=== PATIENT | female | born 1930 | race Caucasian/White ===

== ENCOUNTER 2016-08-08 09:41 | Inpatient (IN) | payer OTHER ==
[~2016-08-08] VITALS: Ht 157.5 cm; Wt 89.8 kg
[~2016-08-08 09:41] MED LIST: ASCO10003 PO; ASPI-346 PO; ATOR10TA82 PO; CALC-354 PO; CALC1CAP36 PO; CITA20TA4 PO; CYAN500T13 PO; EXM25C PO; FENT12DI6 TD; FENT50DI19 TD; FEXO1TAB46 PO; FURO80TA63 PO; ISOS30TA3 PO; LEVO112T4 PO; LPR50X PO; MAGN250T3 PO; MONT1TAB3 PO; NXM/40 PO; OXYC-57 PO; VALS40TA2 PO
[2016-08-08] MEDS ORDERED: ONDANSETRON INJ 2 MG/ML 2 ML VIAL IV STA (09:58)
--- NOTE | 2016-08-08 10:16 | EMERGENCY ROOM VISIT NOTE ---
History Report prepared by Hiral: Jeffrey Joy Under the Supervision of: Garry JuanO. First contact with patient: 09:49 Chief Complaint: PAIN (GENERALIZED) Stated Complaint: LEFT SIDE PAIN History of Present Illness The patient is a 85 year old female who presents to the Emergency Room with complaints of severe and persistent left lower extremity pain starting 3 days ago. She reports pain radiation to the lower back and left knee. She also complains of left lower quadrant abdominal pain. She has worsening pain with movement. She also started having bilateral lower extremity swelling last night. She has been having a decreased urinary output for the past few days. She has a history of bilateral knee replacement. As per daughter, the patient did not have any recent falls. The patient denies any fevers, chills, nausea, vomiting, or any other complaints. Source of History: patient, family Onset: 3 days ago Position: other (left lower extremity) Symptom Intensity: severe Timing: other (persistent) Modifying Factors (Worsening): movement Associated Symptoms: + abdominal pain, + back pain, No chills, No fevers, No nausea, No vomiting Review of Systems See HPI for pertinent positives & negatives. A total of 10 systems reviewed and were otherwise negative. Past Medical & Surgical Medical Problems: (1) Acute kidney injury (2) Dehydration (3) Diarrhea (4) Hiatal hernia (5) Hypothyroid (6) Left knee DJD (7) Ruptured patellar tendon (8) Spinal stenosis (9) Vomiting Surgical Problems: (1) History of cholecystectomy Family History Cancer Heart disease Hypertension Social History Smoking Status: Never Smoker Alcohol Use: none Drug Use: none Marital Status: Housing Status: lives with family Occupation Status: retired Current/Historical Medications Scheduled Albuterol Hfa (Ventolin Hfa), 2-4 PUFFS INH Q6H Ascorbic Acid (Vitamin C), 1,000 MG PO DAILY Aspirin (Mallory Low Dose), 81 MG PO DAILY Atorvastatin (Lipitor), 10 MG PO DAILY Calcitriol (Calcitriol), 0.25 MCG PO DAILY Calcium Carbonate-Cholecalcife (Caltrate 600+D), 1 TAB PO DAILY Citalopram Hydrobromide (Citalopram Hydrobromide), 30 MG PO DAILY Esomeprazole Magnesium (Nexium), 40 MG PO DAILY Exemestane (Aromasin), 25 MG PO DAILY Fentanyl (Duragesic), 50 MCG TD CQ72HR Fentanyl (Fentanyl), 12 MCG TD CQ72HR Ferrous Gluconate (Iron), 65 MG PO DAILY Folic Acid (Folvite), 400 MCG PO DAILY Furosemide (Lasix), 80 MG PO DAILY Isosorbide Mononitrate Ext Rel (Imdur Ext Rel), 30 MG PO QAM Levothyroxine Sodium (Synthroid), 100 MCG PO DAILY Linaclotide (Linzess), 145 MCG PO QAM Magnesium Oxide (Mag-Ox), 800 MG PO DAILY Metoprolol Tartrate (Metoprolol Tartrate), 50 MG PO BID Montelukast Sodium (Singulair), 10 MG PO DAILY Valsartan (Diovan), 40 MG PO DAILY Scheduled PRN Oxycodone/Acetaminophen 5MG/325MG (Percocet 5MG/325MG), 1 TABLET PO Q6H PRN for Pain Allergies Coded Allergies: Lisinopril (Verified Adverse Reaction, Mild, cough, 01/13/15) Physical Exam Vital Signs Date Time Temp Pulse Resp B/P Pulse Ox O2 Delivery O2 Flow Rate FiO2 08/08/16 11:37 65 103/65 94 Room Air 08/08/16 10:51 60 24 186/115 94 Room Air 08/08/16 09:45 36.7 60 20 194/78 96 Room Air Physical Exam GENERAL: Patient is awake, alert, very anxious and uncomfortable appearing. EYES: The conjunctivae are clear. The pupils are round and reactive. EARS, NOSE, MOUTH AND THROAT: The nose is without any evidence of any deformity. Mucous membranes are moist tongue is midline NECK: The neck is nontender and supple. RESPIRATORY: Normal respiratory effort is noted there is no evidence of wheezing rhonchi or rales CARDIOVASCULAR: Regular rate and rhythm noted there no murmurs rubs or gallops normal S1 normal S2 GASTROINTESTINAL: The abdomen is mildly distended but soft. Bowel sounds are present in all quadrants. Left lower quadrant abdominal tenderness to palpation. No definite guarding or rigidity noted. BACK: Low lumbar tenderness to palpation, range of motion appears limited secondary to pain. No midline tenderness or or step-off noted no signs of muscle spasm noted MUSCULOSKELETAL/EXTREMITIES: Full range of motion is noted in the shoulders. Pain with range of motion of the left hip as well as the left knee, no deformity or shortening noted. SKIN: There is no obvious evidence of any rash. There are no petechiae, pallor or cyanosis noted. Bilateral lower extremity edema with venous stasis changes noted. NEUROLOGIC: Patient is awake alert and oriented x3 strength is symmetric but diminished. Severe antalgic gait noted. Medical Decision & Procedures ER Provider Diagnostic Interpretation: CT results as stated below per my review and radiologist interpretation. CT SCAN OF THE ABDOMEN AND PELVIS WITHOUT IV CONTRAST CLINICAL HISTORY: Generalized and left-sided abdominal pain. COMPARISON STUDY: Abdominal radiographs dated 01/13/2015. TECHNIQUE: CT scan of the abdomen and pelvis is performed from the lung bases to the proximal femora. Images are reviewed in the axial, sagittal, and coronal planes. IV contrast was not administered for this examination as per the referring clinician. Note that the examination was performed and significant suboptimal fashion without oral and IV contrast. The examination is also degraded by streak artifact from the patient's arms which could not be [place] elevated above the abdomen. Automated dose control exposure was utilized. CT DOSE: 965.03 mGy.cm FINDINGS: Lung bases: The heart is mildly enlarged and without pericardial effusion. There are coronary artery calcifications. The lung bases are clear. There is a small to moderate hiatal hernia. There is a 2.4 cm irregular lesion identified within the posterior right breast on image #12. Liver: Evaluation of the liver is degraded by streak artifact. The unenhanced liver appears normal in size and contour. The liver demonstrates heterogeneous attenuation. There is mild central intrahepatic biliary ductal dilatation. Gallbladder: Surgically absent noting clips in the gallbladder fossa. Spleen: Normal in size and attenuation. Pancreas: There is marked fatty atrophy of the pancreas with no acute abnormality identified. Adrenal glands: Unremarkable. Kidneys: The unenhanced kidneys are atrophic and without hydronephrosis. There is a 5 mm nonobstructing calculus in the left lower pole. No right renal calculi are seen. A 1.9 cm low-attenuation lesion in the interpolar left kidney seen on image #147 likely represent a cyst but cannot be definitively characterized due to significant streak artifact. A retroaortic left renal vein is incidentally noted. Abdominal vasculature: The abdominal aorta is normal in course and caliber noting advanced atherosclerotic calcification. Bowel: The small bowel and colon are normal in course and caliber. There are scattered colonic diverticula without CT evidence of acute diverticulitis. Moderate constipation is observed. The appendix is not clearly identified. Peritoneum: There is no intraperitoneal free air or abdominal ascites. There is a small fat-containing umbilical hernia as well as diastases of the rectus musculature. Lymphadenopathy: None. Pelvic viscera: The bladder is decompressed and grossly unremarkable. The uterus is normal as visualized. No adnexal lesion is seen. There is evidence of pelvic floor prolapse. Bilateral fat-containing inguinal hernias are identified. Skeletal structures: The skeletal structures are osteopenic. There is moderate to advanced lumbosacral spondylosis with changes from L4-S1 spinal fusion. No lytic or blastic lesions are seen. Advanced arthritic change is seen in the hips. IMPRESSION: 1. Suboptimal examination without oral and IV contrast. 2. There is a 2.4 cm irregular lesion identified within the posterior right breast. Although not well evaluated by CT this is highly concerning for neoplasm. Follow-up at the breast center is recommended for mammography and ultrasound. 3. There are no acute infectious or inflammatory findings in the abdomen or pelvis. 4. Moderate constipation. 5. Cardiomegaly and hiatal hernia. 6. Nonobstructing left renal calculus. 7. Additional findings as above. Electronically signed by: Ray Newell M.D. 08/08/2016 11:28 AM Dictated Date/Time: 08/08/2016 11:18 AM X-ray results as stated below per interpretation by me and the radiologist. CHEST ONE VIEW PORTABLE HISTORY: Generalized abdominal pain. COMPARISON: Chest 01/13/2015. FINDINGS: The heart remains mildly enlarged. Mild diffuse interstitial thickening which is likely chronic. Stable mild elevation of the right hemidiaphragm. No pleural effusions. No pneumothorax. No focal lung consolidations to suggest pneumonia. IMPRESSION: No significant change compared to the prior study. No acute process. Electronically signed by: Miguel Ziegler M.D. 08/08/2016 10:58 AM Dictated Date/Time: 08/08/2016 10:57 AM LEFT HIP 2 VIEWS CLINICAL HISTORY: Left hip pain. FINDINGS: AP and frog-leg views of left hip are correlated with pelvic CT performed the same day 08/08/2016. The skeletal structures are osteopenic. No fracture is seen. Mild arthritic change is identified in the left hip. Advanced arthritic change is identified in the partially imaged right hip. Lumbosacral spondylosis and fusion hardware is partially imaged. Mild sclerotic change is also seen in the sacroiliac joints. The overlying soft tissues are within normal limits. There is a nonobstructed abdominal bowel gas pattern. IMPRESSION: 1. No acute bony abnormality is identified in the left hip. 2. Osteopenia and degenerative change as above. Electronically signed by: Ray Newell M.D. 08/08/2016 11:31 AM Dictated Date/Time: 08/08/2016 11:29 AM LEFT KNEE 2 VIEWS HISTORY: Left knee pain COMPARISON: Left knee 09/25/2013. FINDINGS: There is a left total knee arthroplasty. No acute fractures identified. Abnormal superior displacement of the patella. This was also seen on the prior study but appears to have progressed. Soft tissue edema within the knee. Old, healed proximal fibular fracture. No radiopaque foreign bodies. IMPRESSION: 1. No acute fractures within the left knee. 2. Old, healed proximal fibular fracture. 3. Left total knee arthroplasty. Superior displacement of the patella consistent with patellar ligament tear. This likely represents a chronic injury as this has slightly progressed compared to the prior study. Electronically signed by: Miguel Ziegler M.D. 08/08/2016 11:31 AM Dictated Date/Time: 08/08/2016 11:26 AM Laboratory Results 08/08/16 10:35 Red Blood Count 3.58, Mean Corpuscular Volume 95.8, Mean Corpuscular Hemoglobin 31.3, Mean Corpuscular Hemoglobin Concent 32.7, Mean Platelet Volume 9.8, Neutrophils (%) (Auto) 55.7, Lymphocytes (%) (Auto) 23.3, Monocytes (%) (Auto) 14.1, Eosinophils (%) (Auto) 6.1, Basophils (%) (Auto) 0.6, Neutrophils # (Auto ) 4.84, Lymphocytes # (Auto) 2.02, Monocytes # (Auto) 1.22, Eosinophils # (Auto ) 0.53, Basophils # (Auto) 0.05 08/08/16 10:35 Test 08/08/16 10:35 08/08/16 10:50 White Blood Count 8.68 K/uL (4.8-10.8) Red Blood Count 3.58 M/uL (4.2-5.4) Hemoglobin 11.2 g/dL (12.0-16.0) Hematocrit 34.3 % (37-47) Mean Corpuscular Volume 95.8 fL (80-100) Mean Corpuscular Hemoglobin 31.3 pg (25-34) Mean Corpuscular Hemoglobin Concent 32.7 g/dl (32-36) Platelet Count 209 K/uL (130-400) Mean Platelet Volume 9.8 fL (7.4-10.4) Neutrophils (%) (Auto) 55.7 % Lymphocytes (%) (Auto) 23.3 % Monocytes (%) (Auto) 14.1 % Eosinophils (%) (Auto) 6.1 % Basophils (%) (Auto) 0.6 % Neutrophils # (Auto) 4.84 K/uL (1.4-6.5) Lymphocytes # (Auto) 2.02 K/uL (1.2-3.4) Monocytes # (Auto) 1.22 K/uL (0.11-0.59) Eosinophils # (Auto) 0.53 K/uL (0-0.5) Basophils # (Auto) 0.05 K/uL (0-0.2) RDW Standard Deviation 46.2 fL (36.4-46.3) RDW Coefficient of Variation 13.1 % (11.5-14.5) Immature Granulocyte % (Auto) 0.2 % Immature Granulocyte # (Auto) 0.02 K/uL (0.00-0.02) Prothrombin Time 10.8 SECONDS (9.0-12.0) Prothromb Time International Ratio 1.0 (0.9-1.1) Activated Partial Thromboplast Time 26.5 SECONDS (21.0-31.0) Partial Thromboplastin Ratio 1.0 Anion Gap 7.0 mmol/L (3-11) Estimated GFR () 14.1 Estimated GFR (Non- 12.2 BUN/Creatinine Ratio 16.0 (10-20) Calcium Level 10.3 mg/dl (8.5-10.1) Total Bilirubin 0.6 mg/dl (0.2-1) Direct Bilirubin 0.2 mg/dl (0-0.2) Aspartate Amino Transf (AST/SGOT) 30 U/L (15-37) Alanine Aminotransferase (ALT/SGPT) 26 U/L (12-78) Alkaline Phosphatase 80 U/L (45-117) Total Creatine Kinase 174 U/L (26-192) Creatine Kinase MB 3.9 ng/ml (0.5-3.6) Creatine Kinase MB Ratio 2.2 (0-3.0) Troponin I < 0.015 ng/ml (0-0.045) Pro-B-Type Natriuretic Peptide 4670 pg/ml (0-1800) Total Protein 7.8 gm/dl (6.4-8.2) Albumin 4.4 gm/dl (3.4-5.0) Lipase 61 U/L (73-393) Urine Color YELLOW Urine Appearance CLEAR (CLEAR) Urine pH 6.5 (4.5-7.5) Urine Specific Bowie 1.013 (1.000-1.030) Urine Protein NEG (NEG) Urine Glucose (UA) NEG (NEG) Urine Ketones NEG (NEG) Urine Occult Blood NEG (NEG) Urine Nitrite NEG (NEG) Urine Bilirubin NEG (NEG) Urine Urobilinogen NEG (NEG) Urine Leukocyte Esterase NEG (NEG) Laboratory results per my review. Medications Administered Medications (Trade) Dose Ordered Sig/Lauren Route Start Time Stop Time Status Last Admin Dose Admin Morphine Sulfate (MoRPHine SULFATE INJ) 4 mg Q15M PRN IV 08/08/16 10:00 08/08/16 15:32 DC 08/08/16 11:53 4 MG Ondansetron HCl (Zofran Inj) 4 mg NOW STAT IV 08/08/16 09:58 08/08/16 10:00 DC 08/08/16 10:33 4 MG ECG Indication: abdominal pain Rate (beats per minute): 58 Rhythm: sinus bradycardia Findings: 1st degree AV block, no ectopy, other (No acute ST segment abnormalities) Comparison ECG Date: January 13, 2015 Change: no significant change ED Course 0949: The patient was evaluated in room A09B. A complete history and physical examination were performed. 0958: Zofran Inj 4 mg IV 1000: Morphine Sulfate 4 mg IV 1153: I reevaluated the patient who continues to complain of her pain. quality assurance test program manager will evaluate the situation and determine whether she should be sent for rehab or kept for pain management. 1246: Upon reevaluation, the patient is resting comfortably. I discussed results and treatment plan with the patient and her family. They verbalize agreement and understanding. I spoke with [facility] The patient will be evaluated for further management and care. Medical Decision Prior records/ancillary studies reviewed. Triage Nursing notes reviewed. Additional history obtained from daughter. Differential diagnosis: Etiologies such as renal colic, appendicitis, diverticulitis, mesenteric ischemia, aortic pathology, infections, inflammatory bowel disease, PUD, biliary pathology, UTI, as well as others were entertained. The patient is an 85-year-old female who presented to the emergency department for an evaluation of low back pain left flank pain and left groin pain. She also had pain into her left knee. The patient had reproducible pain with range of motion of her left leg. This appears musculoskeletal in nature although it could be referred pain. The patient has a history of spinal stenosis. At this time I feel her condition may be secondary to referred pain from spinal stenosis although she does have significant arthritis over the left hip and knee. The patient was treated with IV pain medication and IV antiemetics. On subsequent reevaluation she was not significantly improved. I discussed the patient's condition with her. She was still having severe difficulty ambulate. I [facility] They've agreed to evaluate the patient in the emergency department for further management and disposition. Consults Time Called: 1240 Consulting Physician: Ami Pantoja PA-C [facility] Returned Call: 1246 I spoke with Ami Pantoja PA-C of the [facility] Service. Impression Primary Impression: Spinal stenosis Additional Impressions: Intractable pain Left hip pain Arthritis of left hip Scribe Attestation The scribe's documentation has been prepared under my direction and personally reviewed by me in its entirety. I confirm that the note above accurately reflects all work, treatment, procedures, and medical decision making performed by me. Departure Information Dispostion Being Evaluated By Hospitalist Referrals No Doctor, Assigned (PCP) Patient Instructions My [facility] Problem Qualifiers Primary Impression: Spinal stenosis Spinal region: unspecified Qualified Codes: M48.00 - Spinal stenosis, site unspecified
[2016-08-08] MEDS ORDERED: DRGTP12 TD (10:22)
[2016-08-08] MEDS ORDERED: FERR27TA5 PO (10:22)
[2016-08-08] MEDS ORDERED: FOLI400T41 PO (10:22)
[2016-08-08] MEDS ORDERED: LEVO100T PO (10:22)
[2016-08-08] MEDS ORDERED: LINA1CAP PO (10:22)
[2016-08-08] MEDS ORDERED: DVN80 PO (10:22)
[2016-08-08] MEDS ORDERED: VNTHFA/IN INH (10:22)
[2016-08-08] MEDS ORDERED: FNTTP50 TD (10:22)
[2016-08-08] MEDS ORDERED: MAGN400T6 PO (10:22)
[2016-08-08] MEDS: MoRPHine SULFATE 4 MG/ML 1 ML CARP\\VIAL IV PRN ×2 (10:33→11:53)
[2016-08-08 10:46] LABS: BASO % 0.6 %; BASO ABS # 0.05 K/uL (0-0.2); COMPLETE YES; EOS % 6.1 %; HEMATOCRIT 34.3 % (37-47); IG% 0.2 %; LYMPH % 23.3 %; LYMPH ABS # 2.02 K/uL (1.2-3.4); MEAN CELL VOLUME 95.8 fL (80-100); MEAN CORPUSCULAR HEMOGLOBIN 31.3 pg (25-34); MEAN CORPUSCULAR HGB CONC 32.7 g/dl (32-36); MEAN PLATELET VOLUME 9.8 fL (7.4-10.4); MONO % 14.1 %; NEUT % 55.7 %; PLATELET COUNT 209 K/uL (130-400); RED BLOOD COUNT 3.58 M/uL (4.2-5.4); WHITE BLOOD COUNT 8.68 K/uL (4.8-10.8)
[2016-08-08 10:55] LABS: PROTHROMBIN TIME (PATIENT) 10.8 SECONDS (9.0-12.0)
--- NOTE | 2016-08-08 11:00 | DIAGNOSTIC IMAGING REPORT ---
CHEST ONE VIEW PORTABLE HISTORY: Generalized abdominal pain. COMPARISON: Chest 01/13/2015. FINDINGS: The heart remains mildly enlarged. Mild diffuse interstitial thickening which is likely chronic. Stable mild elevation of the right hemidiaphragm. No pleural effusions. No pneumothorax. No focal lung consolidations to suggest pneumonia. IMPRESSION: No significant change compared to the prior study. No acute process. Electronically signed by: Miguel Ziegler M.D. 08/08/2016 10:58 AM Dictated Date/Time: 08/08/2016 10:57 AM
[2016-08-08 11:02] LABS: URINE APPEARANCE CLEAR (CLEAR); URINE BILIRUBIN NEG (NEG); URINE COLOR YELLOW; URINE NITRITE NEG (NEG); URINE PH 6.5 (4.5-7.5); URINE SPECIFIC GRAVITY 1.013 (1.000-1.030); UROBILINOGEN NEG (NEG)
[2016-08-08 11:04] LABS: MANUAL MICROSCOPIC REQUIRED? NO; REVIEW REQ? NO
[2016-08-08 11:05] LABS: ALT/SGPT 26 U/L (12-78); BLOOD UREA NITROGEN 53 mg/dl (7-18); CARBON DIOXIDE 31 mmol/L (21-32); CHLORIDE 99 mmol/L (98-107); GLUCOSE 90 mg/dl (70-99); POTASSIUM 4.8 mmol/L (3.5-5.1); SODIUM 137 mmol/L (136-145)
[2016-08-08 11:06] LABS: CALCIUM 10.3 mg/dl (8.5-10.1)
[2016-08-08 11:11] LABS: ALKALINE PHOSPHATASE 80 U/L (45-117); AST/SGOT 30 U/L (15-37); CKMB/CK RATIO 2.2 (0-3.0)
--- NOTE | 2016-08-08 11:30 | DIAGNOSTIC IMAGING REPORT ---
CT SCAN OF THE ABDOMEN AND PELVIS WITHOUT IV CONTRAST CLINICAL HISTORY: Generalized and left-sided abdominal pain. COMPARISON STUDY: Abdominal radiographs dated 01/13/2015. TECHNIQUE: CT scan of the abdomen and pelvis is performed from the lung bases to the proximal femora. Images are reviewed in the axial, sagittal, and coronal planes. IV contrast was not administered for this examination as per the referring clinician. Note that the examination was performed and significant suboptimal fashion without oral and IV contrast. The examination is also degraded by streak artifact from the patient's arms which could not be [place] elevated above the abdomen. Automated dose control exposure was utilized. CT DOSE: 965.03 mGy.cm FINDINGS: Lung bases: The heart is mildly enlarged and without pericardial effusion. There are coronary artery calcifications. The lung bases are clear. There is a small to moderate hiatal hernia. There is a 2.4 cm irregular lesion identified within the posterior right breast on image #12. Liver: Evaluation of the liver is degraded by streak artifact. The unenhanced liver appears normal in size and contour. The liver demonstrates heterogeneous attenuation. There is mild central intrahepatic biliary ductal dilatation. Gallbladder: Surgically absent noting clips in the gallbladder fossa. Spleen: Normal in size and attenuation. Pancreas: There is marked fatty atrophy of the pancreas with no acute abnormality identified. Adrenal glands: Unremarkable. Kidneys: The unenhanced kidneys are atrophic and without hydronephrosis. There is a 5 mm nonobstructing calculus in the left lower pole. No right renal calculi are seen. A 1.9 cm low-attenuation lesion in the interpolar left kidney seen on image #147 likely represent a cyst but cannot be definitively characterized due to significant streak artifact. A retroaortic left renal vein is incidentally noted. Abdominal vasculature: The abdominal aorta is normal in course and caliber noting advanced atherosclerotic calcification. Bowel: The small bowel and colon are normal in course and caliber. There are scattered colonic diverticula without CT evidence of acute diverticulitis. Moderate constipation is observed. The appendix is not clearly identified. Peritoneum: There is no intraperitoneal free air or abdominal ascites. There is a small fat-containing umbilical hernia as well as diastases of the rectus musculature. Lymphadenopathy: None. Pelvic viscera: The bladder is decompressed and grossly unremarkable. The uterus is normal as visualized. No adnexal lesion is seen. There is evidence of pelvic floor prolapse. Bilateral fat-containing inguinal hernias are identified. Skeletal structures: The skeletal structures are osteopenic. There is moderate to advanced lumbosacral spondylosis with changes from L4-S1 spinal fusion. No lytic or blastic lesions are seen. Advanced arthritic change is seen in the hips. IMPRESSION: 1. Suboptimal examination without oral and IV contrast. 2. There is a 2.4 cm irregular lesion identified within the posterior right breast. Although not well evaluated by CT this is highly concerning for neoplasm. Follow-up at the breast center is recommended for mammography and ultrasound. 3. There are no acute infectious or inflammatory findings in the abdomen or pelvis. 4. Moderate constipation. 5. Cardiomegaly and hiatal hernia. 6. Nonobstructing left renal calculus. 7. Additional findings as above. Electronically signed by: Ray Newell M.D. 08/08/2016 11:28 AM Dictated Date/Time: 08/08/2016 11:18 AM
--- NOTE | 2016-08-08 11:33 | DIAGNOSTIC IMAGING REPORT ---
LEFT HIP 2 VIEWS CLINICAL HISTORY: Left hip pain. FINDINGS: AP and frog-leg views of left hip are correlated with pelvic CT performed the same day 08/08/2016. The skeletal structures are osteopenic. No fracture is seen. Mild arthritic change is identified in the left hip. Advanced arthritic change is identified in the partially imaged right hip. Lumbosacral spondylosis and fusion hardware is partially imaged. Mild sclerotic change is also seen in the sacroiliac joints. The overlying soft tissues are within normal limits. There is a nonobstructed abdominal bowel gas pattern. IMPRESSION: 1. No acute bony abnormality is identified in the left hip. 2. Osteopenia and degenerative change as above. Electronically signed by: Ray Newell M.D. 08/08/2016 11:31 AM Dictated Date/Time: 08/08/2016 11:29 AM
--- NOTE | 2016-08-08 11:33 | DIAGNOSTIC IMAGING REPORT ---
LEFT KNEE 2 VIEWS HISTORY: Left knee pain COMPARISON: Left knee 09/25/2013. FINDINGS: There is a left total knee arthroplasty. No acute fractures identified. Abnormal superior displacement of the patella. This was also seen on the prior study but appears to have progressed. Soft tissue edema within the knee. Old, healed proximal fibular fracture. No radiopaque foreign bodies. IMPRESSION: 1. No acute fractures within the left knee. 2. Old, healed proximal fibular fracture. 3. Left total knee arthroplasty. Superior displacement of the patella consistent with patellar ligament tear. This likely represents a chronic injury as this has slightly progressed compared to the prior study. Electronically signed by: Miguel Ziegler M.D. 08/08/2016 11:31 AM Dictated Date/Time: 08/08/2016 11:26 AM
[2016-08-08] MEDS ORDERED: ALBUTEROL HFA 8 GM INHALER INH PRN (13:00)
[2016-08-08] MEDS ORDERED: ACETAMINOPHEN 325 MG TAB PO PRN (13:30)
[2016-08-08] MEDS ORDERED: MAGNESIUM HYDROXIDE SUSP 30 ML UDC PO PRN (13:30)
[2016-08-08] MEDS ORDERED: ONDANSETRON INJ 2 MG/ML 2 ML VIAL IV PRN (13:30)
[2016-08-08] MEDS ORDERED: POLYETHYLENE (MIRALAX) 17 GM PACK PO PRN (13:30)
--- NOTE | 2016-08-08 13:41 | History and Physical ---
History & Physical Date & Time of Service: Aug 08, 2016 at 13:30 Chief Complaint: Left Side Pain Primary Care Physician: Teresita Jewell M.D. History of Present Illness Source: patient This is a 85 year old F with PMH as below who presented to ER with c/o acute on chronic worsening of lower back/left lower leg pain causing difficulty in ambulation. Patient is a known case of spinal stenosis - status post L4-S1 decompression/ fusion in Nov 2011, severe spinal stenosis. Since surgery, she has always had chronic low back pain with intermittent radiation of pain in lower extremities It has been progressively worsening over the period of years, especially last year and last 3 days it has been the worst. She uses a walker and is able to do her ADLs independently, lives alone with help from daughter. But last 3 days, she has had worsening of chronic back pain with radiation- left lower extremity upto ankle. She has not been able to ambulate or do anything. Reports or falls or traumatic injuries. Has some difficult moving left lower extremity but it is chronic and no new localized weakness, numbness/tingling noted. No fever, chills, urinary/bowel incontinence. Does c/o increased redness, swelling in b/l lower extremities (rt > lt) x few days, but this is also somewhat chronic and happens often. Chronic edema + In ED, received IV morphin x 1 dose. On oxycodone/Fentanyl 12+5- mcg patches at home. Pain somewhat controlled, but still there. Labs- creatinine 3.3 above usual, x rays knee/hip-left/.chest/CT abd/pelvis- no acute findings noted. Will admit her for intractable spinal stenosis pain, MAHI on CKD-III, PT/OT. Past Medical/Surgical History Medical Problems: (1) Acute kidney injury Status: Resolved (2) Dehydration Status: Resolved (3) Diarrhea Status: Resolved (4) Hiatal hernia Status: Resolved (5) Hypothyroid Status: Chronic (6) Left knee DJD Status: Resolved (7) Ruptured patellar tendon Status: Resolved (8) Spinal stenosis Status: Chronic (9) Vomiting Status: Resolved Surgical Problems: (1) History of cholecystectomy Status: Resolved Family History Cancer Heart disease Hypertension Social History Smoking Status: Never Smoker Drug Use: none Marital Status: Occupational Status: retired Immunizations History of Influenza Vaccine: Yes Influenza Vaccine Date: Dec 26, 2012 History of Tetanus Vaccine?: No Tetanus Immunization Date: Dec 26, 2012 History of Pneumococcal: Yes Pneumococcal Date: Dec 26, 2012 History of Hepatitis B Vaccine: No Multi-Drug Resistant Organisms History of MDRO: No Allergies Coded Allergies: Lisinopril (Verified Adverse Reaction, Mild, cough, 01/13/15) Home Medications Scheduled Albuterol Hfa (Ventolin Hfa), 2-4 PUFFS INH Q6H Ascorbic Acid (Vitamin C), 1,000 MG PO DAILY Aspirin (Mallory Low Dose), 81 MG PO DAILY Atorvastatin (Lipitor), 10 MG PO DAILY Calcitriol (Calcitriol), 0.25 MCG PO DAILY Calcium Carbonate-Cholecalcife (Caltrate 600+D), 1 TAB PO DAILY Citalopram Hydrobromide (Citalopram Hydrobromide), 30 MG PO DAILY Esomeprazole Magnesium (Nexium), 40 MG PO DAILY Exemestane (Aromasin), 25 MG PO DAILY Fentanyl (Duragesic), 50 MCG TD [id number] Fentanyl (Fentanyl), 12 MCG TD CQ72HR Ferrous Gluconate (Iron), 65 MG PO DAILY Folic Acid (Folvite), 400 MCG PO DAILY Furosemide (Lasix), 80 MG PO DAILY Isosorbide Mononitrate Ext Rel (Imdur Ext Rel), 30 MG PO QAM Levothyroxine Sodium (Synthroid), 100 MCG PO DAILY Linaclotide (Linzess), 145 MCG PO QAM Magnesium Oxide (Mag-Ox), 800 MG PO DAILY Metoprolol Tartrate (Metoprolol Tartrate), 50 MG PO BID Montelukast Sodium (Singulair), 10 MG PO DAILY Valsartan (Diovan), 40 MG PO DAILY Scheduled PRN Oxycodone/Acetaminophen 5MG/325MG (Percocet 5MG/325MG), 1 TABLET PO Q6H PRN for Pain Review of Systems Constitutional: + fatigue, No chills, No fever Eyes: No worsening of vision ENT: No hearing loss, No nasal symptoms Respiratory: No cough Cardiovascular: + edema, No chest pain, No palpitations Abdomen: No diarrhea, No nausea, No pain Musculoskeletal: + joint pain, + swelling Genitourinary - Female: No dysuria, No urinary frequency Neurologic: No memory loss, No paralysis Endocrine: + fatigue Integumentary: No rash Physical Exam Vital Signs Date Time Temp Pulse Resp B/P Pulse Ox O2 Delivery O2 Flow Rate FiO2 08/08/16 11:37 65 103/65 94 Room Air 08/08/16 10:51 60 24 186/115 94 Room Air 08/08/16 09:45 36.7 60 20 194/78 96 Room Air General Appearance: + mild distress (secondary to pain) Head: normocephalic, atraumatic Eyes: PERRL ENT: hearing grossly normal Neck: supple Respiratory/Chest: chest non-tender, lungs clear, normal breath sounds, no respiratory distress, no accessory muscle use Cardiovascular: regular rate, rhythm, no murmur Abdomen/GI: non tender, soft Back: + pertinent finding (Tenderness in back- generalized all over) Extremities/Musculoskelatal: + pedal edema (bilaterally), + pertinent finding ( bilateral lower extremity- cellulitis- mild (warm, tender, swollen, erythematous )) Neurologic/Psych: alert, oriented x 3, + pertinent finding (5/5 all extremities , except limitation left lower extremity due to pain- 4/5 power which is chronic per patient) Skin: + pertinent finding (bilateral- lower extremities - Erythema, tenderness , swelling +) Diagnostics Laboratory Results Results Past 24 Hours Test 08/08/16 10:35 08/08/16 10:50 Range/Units White Blood Count 8.68 4.8-10.8 K/uL Red Blood Count 3.58 4.2-5.4 M/uL Hemoglobin 11.2 12.0-16.0 g/dL Hematocrit 34.3 37-47 % Mean Corpuscular Volume 95.8 80-100 fL Mean Corpuscular Hemoglobin 31.3 25-34 pg Mean Corpuscular Hemoglobin Concent 32.7 32-36 g/dl Platelet Count 209 130-400 K/uL Mean Platelet Volume 9.8 7.4-10.4 fL Neutrophils (%) (Auto) 55.7 % Lymphocytes (%) (Auto) 23.3 % Monocytes (%) (Auto) 14.1 % Eosinophils (%) (Auto) 6.1 % Basophils (%) (Auto) 0.6 % Neutrophils # (Auto) 4.84 1.4-6.5 K/uL Lymphocytes # (Auto) 2.02 1.2-3.4 K/uL Monocytes # (Auto) 1.22 0.11-0.59 K/uL Eosinophils # (Auto) 0.53 0-0.5 K/uL Basophils # (Auto) 0.05 0-0.2 K/uL RDW Standard Deviation 46.2 36.4-46.3 fL RDW Coefficient of Variation 13.1 11.5-14.5 % Immature Granulocyte % (Auto) 0.2 % Immature Granulocyte # (Auto) 0.02 0.00-0.02 K/uL Prothrombin Time 10.8 9.0-12.0 SECONDS Prothromb Time International Ratio 1.0 0.9-1.1 Activated Partial Thromboplast Time 26.5 21.0-31.0 SECONDS Partial Thromboplastin Ratio 1.0 Sodium Level 137 136-145 mmol/L Potassium Level 4.8 3.5-5.1 mmol/L Chloride Level 99 98-107 mmol/L Carbon Dioxide Level 31 21-32 mmol/L Anion Gap 7.0 3-11 mmol/L Blood Urea Nitrogen 53 7-18 mg/dl Creatinine 3.30 0.60-1.20 mg/dl Estimated GFR () 14.1 Estimated GFR (Non- 12.2 BUN/Creatinine Ratio 16.0 10-20 Random Glucose 90 70-99 mg/dl Calcium Level 10.3 8.5-10.1 mg/dl Total Bilirubin 0.6 0.2-1 mg/dl Direct Bilirubin 0.2 0-0.2 mg/dl Aspartate Amino Transf (AST/SGOT) 30 15-37 U/L Alanine Aminotransferase (ALT/SGPT) 26 12-78 U/L Alkaline Phosphatase 80 45-117 U/L Total Creatine Kinase 174 26-192 U/L Creatine Kinase MB 3.9 0.5-3.6 ng/ml Creatine Kinase MB Ratio 2.2 0-3.0 Troponin I < 0.015 0-0.045 ng/ml Pro-B-Type Natriuretic Peptide 4670 0-1800 pg/ml Total Protein 7.8 6.4-8.2 gm/dl Albumin 4.4 3.4-5.0 gm/dl Lipase 61 73-393 U/L Urine Color YELLOW Urine Appearance CLEAR CLEAR Urine pH 6.5 4.5-7.5 Urine Specific [place] 1.013 1.000-1.030 Urine Protein NEG NEG Urine Glucose (UA) NEG NEG Urine Ketones NEG NEG Urine Occult Blood NEG NEG Urine Nitrite NEG NEG Urine Bilirubin NEG NEG Urine Urobilinogen NEG NEG Urine Leukocyte Esterase NEG NEG Diagnostic Radiology CT ABD/PELVIS: IMPRESSION: 1. Suboptimal examination without oral and IV contrast. 2. There is a 2.4 cm irregular lesion identified within the posterior right breast. Although not well evaluated by CT this is highly concerning for neoplasm. Follow-up at the breast center is recommended for mammography and ultrasound. 3. There are no acute infectious or inflammatory findings in the abdomen or pelvis. 4. Moderate constipation. 5. Cardiomegaly and hiatal hernia. 6. Nonobstructing left renal calculus. 7. Additional findings as above. LEFT HIP X RAY IMPRESSION: 1. No acute bony abnormality is identified in the left hip. 2. Osteopenia and degenerative change as above. CXR- No acute abnormalities Impression Assessment and Plan INTRACTABLE LOW BACK PAIN WITH RADICULOPATHY, ACUTE ON CHRONIC Patient is a known case of spinal stenosis - status post L4-S1 decompression/ fusion in Nov 2011, severe spinal stenosis. Since surgery, she has always had chronic low back pain with intermittent radiation of pain in lower extremities It has been progressively worsening over the period of years, especially last year and last 3 days it has been the worst. She uses a walker and is able to do her ADLs independently, but not for past 2 days. -On Fentanyl 12 and 50 mcg patches, oxycodone q 4 hours prn for pain at home. Follows up with pain mx clinic -Will add IV Dilaudid 1 mg q 4 hours prn for pain and depending on the need will make adjustments in PO medications in AM -X ray - left hip/knee ordered- no acute findings except old pateller ligament tear, X ray lumbar spine ordered -PT/OT MAHI ON CKD-III Baseline around 1.8, 3.3 today Not taking much PO x 3 days -Hold lasix 80 mg, ARB -IV fluids at 75 cc/twin -Monitor MILD CELLULITIS LOWER EXTREMITIES- BL RT> LT -More redness, pain than usual per patient -Doxycycline 100 mg PO BID started HX OF BREAST CARCINOMA -CT abd/pelvis- There is a 2.4 cm irregular lesion identified within the posterior right breast. Although not well evaluated by CT this is highly concerning for neoplasm. Follow-up at the breast center is recommended for mammography and ultrasound. HTN- Stable -Continue with home meds- held ARB due to elevated creatinine HYPOTHYROIDISM -Synthroid GERD -protonix DVT PROPHYLAXIS Moderate risk Heparin sq q 12 hours DISPOSITION PT/OT- lives alone with support from daughter SS consulted DNR/DNI per patient Discussed with daughter by bedside VTE Prophylaxis VTE Risk Assessment Done? Y/N: Yes Risk Level: Moderate
--- NOTE | 2016-08-08 13:57 | DIAGNOSTIC IMAGING REPORT ---
LUMBAR SPINE 5 VIEWS HISTORY: Back pain with lower extremity pain with hx of lumb decom/fusion COMPARISON: None. FINDINGS: There is no fracture. No subluxation. Cholecystectomy. Minimal dextroscoliosis of the upper thoracic spine. The sacrum appears intact. L4-S1 posterior decompression and fusion. The hardware appears intact. Mild disc space narrowing at L1-L2, L2-L3, no free L4. There is also mild disc space narrowing at the lower thoracic spine. Severe osteoarthritis within the right hip with [id number] articulation. IMPRESSION: 1. L4-S1 posterior decompression and fusion. The hardware appears intact. 2. Mild degenerative disease within the upper lumbar spine. 3. Severe osteoarthritis within the right hip. Electronically signed by: Miguel Ziegler M.D. 08/08/2016 1:55 PM Dictated Date/Time: 08/08/2016 1:52 PM
[2016-08-08] MEDS ORDERED: HYDROmorphone INJ 1 MG/ML SYR IV PRN (14:00)
[2016-08-08 14:30] VITALS: Ht 157.5 cm; Wt 89.8 kg
[2016-08-08 14:49] VITALS: O2SAT 96
[2016-08-08 15:36] VITALS: BP 175/49; PULSE 71; TEMP 36.7; O2SAT 94
[2016-08-08] MEDS ORDERED: SODIUM CHLORIDE 0.9% 1000ML 1,000 ML IV SCH (15:45)
[2016-08-08] MEDS: CHECK FENTANYL PATCH PLACEMENT SCH ×2 (17:15)
[2016-08-08] MEDS: DOCUSATE SODIUM 100 MG CAP PO SCH (20:24)
[2016-08-08] MEDS: DOXYCYCLINE HYCLATE 100 MG CAP PO SCH (20:25)
[2016-08-08] MEDS: METOPROLOL TARTRATE 50 MG TAB PO SCH (20:25)
[2016-08-08] MEDS: HEPARIN SOD 5000 UNIT/0.5 ML CARP SQ SCH (20:27)
[2016-08-09] MEDS: CHECK FENTANYL PATCH PLACEMENT SCH ×8 (00:18→23:53)
[2016-08-09 01:05] VITALS: BP 132/70; PULSE 62; TEMP 36.4; O2SAT 91
[2016-08-09] MEDS: LEVOTHYROXINE 100 MCG TAB PO SCH (06:15)
[2016-08-09 07:18] VITALS: BP 146/71; PULSE 62; TEMP 36.5; O2SAT 90
[2016-08-09 07:35] LABS: HEMATOCRIT 31.3 % (37-47); MEAN CELL VOLUME 96.6 fL (80-100); MEAN CORPUSCULAR HEMOGLOBIN 30.9 pg (25-34); MEAN CORPUSCULAR HGB CONC 31.9 g/dl (32-36); MEAN PLATELET VOLUME 9.3 fL (7.4-10.4); PLATELET COUNT 174 K/uL (130-400); RED BLOOD COUNT 3.24 M/uL (4.2-5.4); WHITE BLOOD COUNT 6.87 K/uL (4.8-10.8)
[2016-08-09] MEDS ORDERED: NON-FORMULARY MEDICATION (Esomeprazole Magnesium (Nexium) 40 MG) PO SCH (08:00)
[2016-08-09 08:12] LABS: BUN/CREATININE RATIO 16.9 (10-20); CREATININE 3.1 mg/dl (0.60-1.20); POTASSIUM 4.7 mmol/L (3.5-5.1)
[2016-08-09 08:27] LABS: CALCIUM 8.9 mg/dl (8.5-10.1)
[2016-08-09] MEDS: CALCITRIOL 0.25 MCG CAP PO SCH (08:36)
[2016-08-09] MEDS: DOXYCYCLINE HYCLATE 100 MG CAP PO SCH ×2 (08:36→19:35)
[2016-08-09] MEDS: CALCIUM 600MG + VIT D 400 IU TAB PO SCH (08:37)
[2016-08-09] MEDS: ISOSORBIDE MONONITRATE 30 MG TABCR PO SCH (08:37)
[2016-08-09] MEDS: MONTELUKAST SOD 10 MG TAB PO SCH (08:37)
[2016-08-09] MEDS: CITALOPRAM 20 MG TAB PO SCH (08:37)
[2016-08-09] MEDS: MAGNESIUM OXIDE 400 MG TAB PO SCH (08:38)
[2016-08-09] MEDS: FERROUS GLUCONATE 324 MG TAB PO SCH (08:38)
[2016-08-09] MEDS: FoLIC ACID TAB 400 MCG TAB PO SCH (08:38)
[2016-08-09] MEDS: ATORVASTATIN 10 MG TAB PO SCH (08:38)
[2016-08-09] MEDS: ASPIRIN 81 MG ECTAB PO SCH (08:38)
[2016-08-09] MEDS: PANTOprazole SOD 40 MG TAB PO SCH (08:39)
[2016-08-09] MEDS: DOCUSATE SODIUM 100 MG CAP PO SCH ×2 (08:39→19:35)
[2016-08-09] MEDS: METOPROLOL TARTRATE 50 MG TAB PO SCH ×2 (08:39→19:34)
[2016-08-09] MEDS: HEPARIN SOD 5000 UNIT/0.5 ML CARP SQ SCH ×2 (08:47→21:05)
[2016-08-09] MEDS ORDERED: FENTANYL PATCH REMOVE & WASTE SCH ×2 (08:59)
[2016-08-09] MEDS ORDERED: FENTANYL 12 MCG/HR TDSY TD SCH ×2 (09:00→21:00)
[2016-08-09] MEDS ORDERED: FENTANYL 50 MCG/HR TDSY TD SCH ×2 (09:00→21:00)
[2016-08-09] MEDS ORDERED: NURSING VERBAL MED ORDER ONE (10:00)
--- NOTE | 2016-08-09 15:14 | Progress Note ---
Medicine Progress Note Date & Time of Visit: Aug 09, 2016 at 14:57. Subjective Pt was seen and examined Lying in bed with no distress Pt said that pain seems under controlled as long as she does not move. denies any chest pain, palpitation, dizziness and sob Objective Last 8 Hrs Date Time Temp Pulse Resp B/P Pulse Ox O2 Delivery O2 Flow Rate FiO2 08/09/16 11:13 Room Air 08/09/16 07:18 36.5 62 18 146/71 90 Room Air Physical Exam: General- No acute distress Head- atraumatic Eyes- PERRL, EOMI ENT- oropharynx clear Neck- supple, no JVD Lungs- clear to auscultation, no wheezing Heart- regular rhythm Abdomen- normal bowel sounds, soft Extremities- + edema and tenderness in LE Neuro- alert, oriented, PERRL, EOMI Skin- warm & dry Laboratory Results: Last 24 Hours Test 08/09/16 07:18 White Blood Count 6.87 K/uL Red Blood Count 3.24 M/uL Hemoglobin 10.0 g/dL Hematocrit 31.3 % Mean Corpuscular Volume 96.6 fL Mean Corpuscular Hemoglobin 30.9 pg Mean Corpuscular Hemoglobin Concent 31.9 g/dl RDW Standard Deviation 45.3 fL RDW Coefficient of Variation 12.9 % Platelet Count 174 K/uL Mean Platelet Volume 9.3 fL Sodium Level 139 mmol/L Potassium Level 4.7 mmol/L Chloride Level 103 mmol/L Carbon Dioxide Level 28 mmol/L Anion Gap 8.0 mmol/L Blood Urea Nitrogen 53 mg/dl Creatinine 3.10 mg/dl Est Creatinine Clear Calc Drug Dose 14.1 ml/min Estimated GFR () 15.3 Estimated GFR (Non- 13.2 BUN/Creatinine Ratio 16.9 Random Glucose 69 mg/dl Calcium Level 8.9 mg/dl Assessment & Plan INTRACTABLE LOW BACK PAIN WITH RADICULOPATHY, ACUTE ON CHRONIC hx spinal stenosis - status post L4-S1 decompression/fusion in Nov 2011 Hx chronic low back pain with intermittent radiation of pain in lower extremities On Fentanyl 12 and 50 mcg patches, oxycodone q 4 hours prn for pain at home X ray lumbar spine showed L4-S1 posterior decompression and fusion. The hardware appears intact. Continue pain controlled MAHI ON CKD-III Baseline around 1.8 Creatine on admission 3.3 Possible related to dehydration due to decrease PO intake in the last few days Continue holding lasix 80 mg, ARB IV fluids at 75 cc/twin Monitor bmp MILD CELLULITIS LOWER EXTREMITIES- BL RT> LT Continue Doxycycline 100 mg PO BID started Will get a doppler of LE to r/o any DVT due to increase pain HX OF BREAST CARCINOMA CT abd/pelvis- There is a 2.4 cm irregular lesion identified within the posterior right breast. Although not well evaluated by CT this is highly concerning for neoplasm. Follow-up at the breast center is recommended for mammography and ultrasound. HTN- Stable Continue holding ARB due to elevated creatine continue monitor BP HYPOTHYROIDISM On Synthroid GERD Protonix DVT PROPHYLAXIS Moderate risk Heparin sq q 12 hours DISPOSITION PT/OT- lives alone with support from daughter SS consulted CODE STATUS DNR Current Inpatient Medications: Current Inpatient Medications Medications (Trade) Dose Ordered Sig/Lauren Route Start Time Stop Time Status Last Admin Dose Admin Albuterol (Ventolin Hfa Inhaler) 2 puffs Q6H PRN INH 08/08/16 13:00 09/07/16 12:59 Aspirin (Ecotrin Tab) 81 mg DAILY PO 08/09/16 08:00 09/08/16 08:59 08/09/16 08:38 81 MG Atorvastatin Calcium (Lipitor Tab) 10 mg DAILY PO 08/09/16 08:00 09/08/16 08:59 08/09/16 08:38 10 MG Calcitriol (Rocaltrol Cap) 0.25 mcg DAILY PO 08/09/16 08:00 09/08/16 08:59 08/09/16 08:36 0.25 MCG Citalopram Hydrobromide (celeXA TAB) 30 mg DAILY PO 08/09/16 08:00 09/08/16 08:59 08/09/16 08:37 30 MG Folic Acid (Folvite Tab) 400 mcg DAILY PO 08/09/16 08:00 09/08/16 08:59 08/09/16 08:38 400 MCG Isosorbide Mononitrate (Imdur Ext Rel Tab) 30 mg QAM PO 08/09/16 08:00 09/08/16 08:59 08/09/16 08:37 30 MG Levothyroxine Sodium (Synthroid Tab) 100 mcg DAILYBB PO 08/09/16 06:30 09/08/16 06:29 08/09/16 06:15 100 MCG Magnesium Oxide (Mag-Ox Tab) 800 mg DAILY PO 08/09/16 08:00 09/08/16 08:59 08/09/16 08:38 800 MG Metoprolol Tartrate (Lopressor Tab) 50 mg BID PO 08/08/16 20:00 09/07/16 20:59 08/09/16 08:39 50 MG Montelukast Sodium (Singulair Tab) 10 mg DAILY PO 08/09/16 08:00 09/08/16 08:59 08/09/16 08:37 10 MG Oxycodone/ Acetaminophen (Percocet 5-325mg Tab) 1 tab Q4H PRN PO 08/08/16 13:00 08/22/16 12:59 Calcium/Vitamin D (Caltrate Plus Tab) 1 tab DAILY PO 08/09/16 08:00 09/08/16 08:59 08/09/16 08:37 1 TAB Miscellaneous Information (Order Awaiting Action) 1 ea QS N/A 08/08/16 16:00 09/07/16 15:59 Ferrous Gluconate (Ferrous Gluconate Tab) 324 mg DAILY PO 08/09/16 08:00 09/08/16 07:59 08/09/16 08:38 324 MG Miscellaneous Information (Order Awaiting Action) 1 ea QS N/A 08/08/16 16:00 09/07/16 15:59 Acetaminophen (Tylenol Tab) 650 mg Q4H PRN PO 08/08/16 13:30 09/07/16 13:29 Magnesium Hydroxide (Milk Of Magnesia Susp) 30 ml Q6H PRN PO 08/08/16 13:30 09/07/16 13:29 Polyethylene (Miralax Powder Packet) 17 gm DAILY PRN PO 08/08/16 13:30 09/07/16 13:29 Ondansetron HCl (Zofran Inj) 4 mg Q6H PRN IV 08/08/16 13:30 09/07/16 13:29 Heparin Sodium (Porcine) (Heparin Sq 5000 Unit/0.5ml) 5,000 unit Q12H SQ 08/08/16 21:00 09/07/16 20:59 08/09/16 08:47 5,000 UNIT Pantoprazole Sodium (Protonix Tab) 40 mg QAM PO 08/09/16 08:00 09/08/16 08:59 08/09/16 08:39 40 MG Docusate Sodium (coLACE CAP) 100 mg BID PO 08/08/16 20:00 09/07/16 20:59 08/09/16 08:39 100 MG Doxycycline Hyclate (Vibramycin Cap) 100 mg BID PO 08/08/16 20:00 08/18/16 20:59 08/09/16 08:36 100 MG Hydromorphone HCl (Dilaudid Inj) 1 mg Q4H PRN IV 08/08/16 14:00 08/22/16 13:59 Miscellaneous Information (Check Fentanyl Patch Placement) 1 ea QS N/A 08/08/16 16:00 09/07/16 15:59 08/09/16 08:39 1 EA Miscellaneous Information (Check Fentanyl Patch Placement) 1 ea QS N/A 08/08/16 16:00 09/07/16 15:59 08/09/16 08:39 1 EA Fentanyl (Duragesic Patch) 50 mcg Q3D@2100 TD 08/09/16 21:00 08/23/16 20:59 Fentanyl (Duragesic Patch) 12 mcg Q3D@2100 TD 08/09/16 21:00 08/23/16 20:59 Miscellaneous (Fentanyl Patch Remove & Waste) 1 ea Q3D@2059 N/A 08/12/16 20:59 09/11/16 20:58 Miscellaneous (Fentanyl Patch Remove & Waste) 1 ea Q3D@2059 N/A 08/12/16 20:59 09/11/16 20:58
[2016-08-09 15:35] VITALS: BP 134/70; PULSE 56; TEMP 36.8; O2SAT 91
--- NOTE | 2016-08-09 17:11 | DIAGNOSTIC IMAGING REPORT ---
BILATERAL LOWER EXTREMITY VENOUS DOPPLER CLINICAL HISTORY: Lower extremity tenderness and swelling. COMPARISON STUDY: No previous studies for comparison. TECHNIQUE: Sonography of the deep venous system of the bilateral lower extremities was performed. Compression and augmentation were evaluated. FINDINGS: This exam was significantly compromised due to suboptimal penetration. There was lower extremity edema. The common femoral, superficial femoral and popliteal veins were compressible. Augmentation was normal. Flow was shown within the deep calf vessels. IMPRESSION: Technically compromised exam but no evidence of deep venous thrombus within the bilateral lower extremities. Electronically signed by: Jon Cobian M.D. 08/09/2016 5:09 PM Dictated Date/Time: 08/09/2016 5:08 PM
[2016-08-10 00:19] VITALS: BP 149/70; PULSE 66; TEMP 36.7; O2SAT 92
[2016-08-10] MEDS: OXYCODONE/ACETAMINOPHEN 5-325 TAB PO PRN ×2 (02:55→17:03)
[2016-08-10] MEDS: LEVOTHYROXINE 100 MCG TAB PO SCH (06:22)
[2016-08-10 06:36] LABS: MEAN CELL VOLUME 96.2 fL (80-100); MEAN CORPUSCULAR HEMOGLOBIN 31.7 pg (25-34); MEAN PLATELET VOLUME 9.6 fL (7.4-10.4); PLATELET COUNT 144 K/uL (130-400); RED BLOOD COUNT 3.12 M/uL (4.2-5.4); WHITE BLOOD COUNT 5.99 K/uL (4.8-10.8)
[2016-08-10 07:07] LABS: CALCIUM 8.9 mg/dl (8.5-10.1); CREATININE 3.1 mg/dl (0.60-1.20); POTASSIUM 4.6 mmol/L (3.5-5.1)
[2016-08-10 07:28] VITALS: BP 111/66; PULSE 50; TEMP 36.5; O2SAT 95
[2016-08-10] MEDS: CHECK FENTANYL PATCH PLACEMENT SCH ×4 (08:34→16:01)
[2016-08-10] MEDS: BOOST VANILLA PO SCH ×2 (08:38)
[2016-08-10] MEDS: CALCIUM 600MG + VIT D 400 IU TAB PO SCH (08:40)
[2016-08-10] MEDS: CITALOPRAM 20 MG TAB PO SCH (08:40)
[2016-08-10] MEDS: ISOSORBIDE MONONITRATE 30 MG TABCR PO SCH (08:43)
[2016-08-10] MEDS: FoLIC ACID TAB 400 MCG TAB PO SCH (08:43)
[2016-08-10] MEDS: FERROUS GLUCONATE 324 MG TAB PO SCH (08:43)
[2016-08-10] MEDS: DOCUSATE SODIUM 100 MG CAP PO SCH ×2 (08:44→19:38)
[2016-08-10] MEDS: PANTOprazole SOD 40 MG TAB PO SCH (08:44)
[2016-08-10] MEDS: DOXYCYCLINE HYCLATE 100 MG CAP PO SCH ×2 (08:44→19:38)
[2016-08-10] MEDS: MONTELUKAST SOD 10 MG TAB PO SCH (08:45)
[2016-08-10] MEDS: MAGNESIUM OXIDE 400 MG TAB PO SCH (08:45)
[2016-08-10] MEDS: CALCITRIOL 0.25 MCG CAP PO SCH (08:45)
[2016-08-10] MEDS: ASPIRIN 81 MG ECTAB PO SCH (08:46)
[2016-08-10] MEDS: ATORVASTATIN 10 MG TAB PO SCH (08:46)
[2016-08-10 08:48] VITALS: PULSE 56
[2016-08-10] MEDS: METOPROLOL TARTRATE 50 MG TAB PO SCH ×2 (08:48→19:33)
[2016-08-10] MEDS: HEPARIN SOD 5000 UNIT/0.5 ML CARP SQ SCH ×2 (08:55→19:45)
--- NOTE | 2016-08-10 14:09 | Clinical Documentation Query ---
CLINICAL DOCUMENTATION QUERY Dr. LUNA, In your clinical opinion is this patient being managed for: ( ) Chronic pain syndrome ( ) Other explanation of clinical findings (Please Explain) ( ) Unable to determine (Please Define) ( ) Need to Discuss ( ) Not Agree The medical record reflects the following clinical findings, treatment, and risk factors. Clinical Indicators: 85 yo female presenting with severe, persistent low back pain and L knee pain. Pt has a hx of spinal stenosis with prior fusion as well as chronic low back pain with intermittent radiation to LE. Treatment: fentanyl patches, oxycodone prn, multiple xrays--hip, knee, lumbar spine, PT/OT Risk Factors: spinal stenosis, chronic back pain, osteoarthritis Please clarify and document your clinical opinion in the progress notes and discharge summary. Terms such as "probable", "suspected", "likely", "questionable", "possible", or "still to be ruled out" are acceptable. IF IN AGREEMENT, YOU MUST DOCUMENT ABOVE DIAGNOSTIC STATEMENT IN DAILY PROGRESS NOTES AND DISCHARGE SUMMARY. This document is not part of the patient's record. Thank You, Carlotta Alcantara RN [phone]
[2016-08-10 15:32] VITALS: BP 116/62; PULSE 64; TEMP 36.6; O2SAT 94
--- NOTE | 2016-08-10 18:40 | Progress Note ---
Medicine Progress Note Date & Time of Visit: Aug 10, 2016 at 18:28. Subjective Pt was seen and examined Sitting in chair with no distress Pt feels a little better today she said that pain seems to control with the pain meds denies any chest pain, palpitation, dizziness and sob Both daughters were present and updated them about the patient Objective Last 8 Hrs Date Time Temp Pulse Resp B/P Pulse Ox O2 Delivery O2 Flow Rate FiO2 08/10/16 16:00 Room Air 08/10/16 15:32 36.6 64 18 116/62 94 Room Air Physical Exam: General- No acute distress Head- atraumatic Eyes- PERRL, EOMI ENT- oropharynx clear Neck- supple, no JVD Lungs- clear to auscultation, no wheezing Heart- regular rhythm Abdomen- normal bowel sounds, soft Extremities- + edema and tenderness in LE Neuro- alert, oriented, PERRL, EOMI Skin- warm & dry Laboratory Results: Last 24 Hours Test 08/10/16 06:09 White Blood Count 5.99 K/uL Red Blood Count 3.12 M/uL Hemoglobin 9.9 g/dL Hematocrit 30.0 % Mean Corpuscular Volume 96.2 fL Mean Corpuscular Hemoglobin 31.7 pg Mean Corpuscular Hemoglobin Concent 33.0 g/dl RDW Standard Deviation 45.5 fL RDW Coefficient of Variation 13.1 % Platelet Count 144 K/uL Mean Platelet Volume 9.6 fL Sodium Level 139 mmol/L Potassium Level 4.6 mmol/L Chloride Level 104 mmol/L Carbon Dioxide Level 29 mmol/L Anion Gap 6.0 mmol/L Blood Urea Nitrogen 56 mg/dl Creatinine 3.10 mg/dl Est Creatinine Clear Calc Drug Dose 14.1 ml/min Estimated GFR () 15.3 Estimated GFR (Non- 13.2 BUN/Creatinine Ratio 18.0 Random Glucose 77 mg/dl Calcium Level 8.9 mg/dl Assessment & Plan INTRACTABLE LOW BACK PAIN WITH RADICULOPATHY, ACUTE ON CHRONIC hx spinal stenosis - status post L4-S1 decompression/fusion in Nov 2011 Hx chronic low back pain with intermittent radiation of pain in lower extremities On Fentanyl 12 and 50 mcg patches, oxycodone q 4 hours prn for pain at home X ray lumbar spine showed L4-S1 posterior decompression and fusion. The hardware appears intact. Continue PT/OT Continue pain controlled stable MAHI ON CKD Stage 4 Seems like new baseline creatine is btw 3.1 to 3.3 since back 12/30 Creatine on admission 3.3---> 3.1 today Pt follow with Dr. Morales [facility] Had a fistula placed in her left arm about 2 yrs ago Consult nephrology-Pending Will consider to resume lasix 80 mg and ARB in the morning after seeing by nephrology D/C IV fluids Monitor bmp MILD CELLULITIS LOWER EXTREMITIES- BL RT> LT Continue Doxycycline 100 mg PO BID started Venous Doppler of LE negative for DVT HX OF BREAST CARCINOMA CT abd/pelvis- There is a 2.4 cm irregular lesion identified within the posterior right breast. Although not well evaluated by CT this is highly concerning for neoplasm. Follow-up at the breast center is recommended for mammography and ultrasound. HTN- Stable Will resume in ARB in am continue monitor BP HYPOTHYROIDISM On Synthroid GERD Protonix DVT PROPHYLAXIS Moderate risk Heparin sq q 12 hours DISPOSITION PT/OT- lives alone with support from daughter SS consulted CODE STATUS DNR DISPOSITION Will discharge tomorrow after seeing by nephrology Consultants: Nephrology Current Inpatient Medications: Current Inpatient Medications Medications (Trade) Dose Ordered Sig/Lauren Route Start Time Stop Time Status Last Admin Dose Admin Albuterol (Ventolin Hfa Inhaler) 2 puffs Q6H PRN INH 08/08/16 13:00 09/07/16 12:59 Aspirin (Ecotrin Tab) 81 mg DAILY PO 08/09/16 08:00 09/08/16 08:59 08/10/16 08:46 81 MG Atorvastatin Calcium (Lipitor Tab) 10 mg DAILY PO 08/09/16 08:00 09/08/16 08:59 08/10/16 08:46 10 MG Calcitriol (Rocaltrol Cap) 0.25 mcg DAILY PO 08/09/16 08:00 09/08/16 08:59 08/10/16 08:45 0.25 MCG Citalopram Hydrobromide (celeXA TAB) 30 mg DAILY PO 08/09/16 08:00 09/08/16 08:59 08/10/16 08:40 30 MG Folic Acid (Folvite Tab) 400 mcg DAILY PO 08/09/16 08:00 09/08/16 08:59 08/10/16 08:43 400 MCG Isosorbide Mononitrate (Imdur Ext Rel Tab) 30 mg QAM PO 08/09/16 08:00 09/08/16 08:59 08/10/16 08:43 30 MG Levothyroxine Sodium (Synthroid Tab) 100 mcg DAILYBB PO 08/09/16 06:30 09/08/16 06:29 08/10/16 06:22 100 MCG Magnesium Oxide (Mag-Ox Tab) 800 mg DAILY PO 08/09/16 08:00 09/08/16 08:59 08/10/16 08:45 800 MG Metoprolol Tartrate (Lopressor Tab) 50 mg BID PO 08/08/16 20:00 09/07/16 20:59 08/09/16 08:39 50 MG Montelukast Sodium (Singulair Tab) 10 mg DAILY PO 08/09/16 08:00 09/08/16 08:59 08/10/16 08:45 10 MG Oxycodone/ Acetaminophen (Percocet 5-325mg Tab) 1 tab Q4H PRN PO 08/08/16 13:00 08/22/16 12:59 08/10/16 17:03 1 TAB Calcium/Vitamin D (Caltrate Plus Tab) 1 tab DAILY PO 08/09/16 08:00 09/08/16 08:59 08/10/16 08:40 1 TAB Ferrous Gluconate (Ferrous Gluconate Tab) 324 mg DAILY PO 08/09/16 08:00 09/08/16 07:59 08/10/16 08:43 324 MG Acetaminophen (Tylenol Tab) 650 mg Q4H PRN PO 08/08/16 13:30 09/07/16 13:29 Magnesium Hydroxide (Milk Of Magnesia Susp) 30 ml Q6H PRN PO 08/08/16 13:30 09/07/16 13:29 Polyethylene (Miralax Powder Packet) 17 gm DAILY PRN PO 08/08/16 13:30 09/07/16 13:29 Ondansetron HCl (Zofran Inj) 4 mg Q6H PRN IV 08/08/16 13:30 09/07/16 13:29 Heparin Sodium (Porcine) (Heparin Sq 5000 Unit/0.5ml) 5,000 unit Q12H SQ 08/08/16 21:00 09/07/16 20:59 08/10/16 08:55 5,000 UNIT Pantoprazole Sodium (Protonix Tab) 40 mg QAM PO 08/09/16 08:00 09/08/16 08:59 08/10/16 08:44 40 MG Docusate Sodium (coLACE CAP) 100 mg BID PO 08/08/16 20:00 09/07/16 20:59 08/10/16 08:44 100 MG Doxycycline Hyclate (Vibramycin Cap) 100 mg BID PO 08/08/16 20:00 08/18/16 20:59 08/10/16 08:44 100 MG Hydromorphone HCl (Dilaudid Inj) 1 mg Q4H PRN IV 08/08/16 14:00 08/22/16 13:59 Miscellaneous Information (Check Fentanyl Patch Placement) 1 ea QS N/A 08/08/16 16:00 09/07/16 15:59 08/10/16 16:00 1 EA Miscellaneous Information (Check Fentanyl Patch Placement) 1 ea QS N/A 08/08/16 16:00 09/07/16 15:59 08/10/16 16:01 1 EA Fentanyl (Duragesic Patch) 50 mcg Q3D@2100 TD 08/09/16 21:00 08/23/16 20:59 08/09/16 20:57 50 MCG Fentanyl (Duragesic Patch) 12 mcg Q3D@2100 TD 08/09/16 21:00 08/23/16 20:59 08/09/16 20:57 12 MCG Miscellaneous (Fentanyl Patch Remove & Waste) 1 ea Q3D@2059 N/A 08/12/16 20:59 09/11/16 20:58 Miscellaneous (Fentanyl Patch Remove & Waste) 1 ea Q3D@2059 N/A 08/12/16 20:59 09/11/16 20:58 Enteral Nutritional Formula (Boost) 1 can DAILY PO 08/10/16 08:00 09/09/16 07:59 Exemestane (Exemestane) 25 mg DAILY PO 08/11/16 08:00 09/10/16 07:59 Linaclotide (Linzess) 145 mcg DAILY@0800 PO 08/11/16 08:00 09/10/16 07:59
[2016-08-10 19:59] VITALS: PULSE 56
[2016-08-10 23:54] VITALS: BP 163/68; PULSE 61; TEMP 36.3; O2SAT 95
[2016-08-11] MEDS: CHECK FENTANYL PATCH PLACEMENT SCH ×6 (00:51→16:00)
[2016-08-11] MEDS: LEVOTHYROXINE 100 MCG TAB PO SCH (05:55)
[2016-08-11 06:04] LABS: HEMATOCRIT 29.5 % (37-47); MEAN CELL VOLUME 95.2 fL (80-100); MEAN CORPUSCULAR HEMOGLOBIN 31.3 pg (25-34); MEAN CORPUSCULAR HGB CONC 32.9 g/dl (32-36); MEAN PLATELET VOLUME 9.7 fL (7.4-10.4); PLATELET COUNT 166 K/uL (130-400); WHITE BLOOD COUNT 6.43 K/uL (4.8-10.8)
[2016-08-11 06:38] LABS: BUN/CREATININE RATIO 18.2 (10-20); CREATININE 2.7 mg/dl (0.60-1.20); POTASSIUM 4.4 mmol/L (3.5-5.1)
[2016-08-11 07:42] VITALS: BP 191/71; PULSE 113; TEMP 36.8; O2SAT 91
[2016-08-11] MEDS ORDERED: LINACLOTIDE 145 MCG CAP PO SCH (08:00)
[2016-08-11] MEDS ORDERED: EXEMESTANE 25 MG TAB PO SCH (08:00)
[2016-08-11] MEDS: FoLIC ACID TAB 400 MCG TAB PO SCH (08:00)
[2016-08-11] MEDS: ISOSORBIDE MONONITRATE 30 MG TABCR PO SCH (08:00)
[2016-08-11] MEDS: FERROUS GLUCONATE 324 MG TAB PO SCH (08:00)
[2016-08-11] MEDS: ATORVASTATIN 10 MG TAB PO SCH (08:01)
[2016-08-11] MEDS: DOCUSATE SODIUM 100 MG CAP PO SCH (08:01)
[2016-08-11] MEDS: CITALOPRAM 20 MG TAB PO SCH (08:01)
[2016-08-11] MEDS: ASPIRIN 81 MG ECTAB PO SCH (08:01)
[2016-08-11] MEDS: MONTELUKAST SOD 10 MG TAB PO SCH (08:03)
[2016-08-11] MEDS: CALCITRIOL 0.25 MCG CAP PO SCH (08:03)
[2016-08-11] MEDS: MAGNESIUM OXIDE 400 MG TAB PO SCH (08:03)
[2016-08-11] MEDS: METOPROLOL TARTRATE 50 MG TAB PO SCH (08:04)
[2016-08-11] MEDS: DOXYCYCLINE HYCLATE 100 MG CAP PO SCH (08:04)
[2016-08-11] MEDS: CALCIUM 600MG + VIT D 400 IU TAB PO SCH (08:04)
[2016-08-11] MEDS: PANTOprazole SOD 40 MG TAB PO SCH (08:04)
[2016-08-11] MEDS: BOOST VANILLA PO SCH ×2 (08:09)
[2016-08-11] MEDS: OXYCODONE/ACETAMINOPHEN 5-325 TAB PO PRN ×2 (08:10→17:00)
[2016-08-11] MEDS: HEPARIN SOD 5000 UNIT/0.5 ML CARP SQ SCH (08:15)
[2016-08-11 10:16] VITALS: BP 148/63
--- NOTE | 2016-08-11 11:58 | NEPHROLOGY CONSULTATION ---
DATE OF CONSULTATION: 08/11/2016 DATE OF CONSULTATION: 08/11/2016. ATTENDING OF RECORD: Dr. Parsons. REASON FOR CONSULTATION: CKD stage IV. HISTORY OF PRESENT ILLNESS: This is an 85-year-old female who has chronic back pain with history of spinal stenosis with an L4-S1 decompression and fusion in 2011, who suffers from chronic low back pain which has been worsening. The patient uses a walker and does live alone at home but comes in with ambulatory dysfunction and worsening pain in her back and legs. The patient is being appropriately treated by the primary hospitalist with pain management and getting physical therapy as well. The patient does have underlying CKD stage IV with a mature fistula that was placed 2 years ago followed by Dr. Arnold of [place] with a creatinine of 3.3 on admission and has trended down to 2.7 and currently not exhibiting any uremic symptoms. Appetite is stable. No nausea or vomiting. No weird taste of foods. In terms of her creatinine, January of 2015 creatinine was in the low 2s and then last fall was in the low 3s and this spring was in the low 3s. REVIEW OF SYSTEMS: Positive fatigue, good appetite. No nausea, vomiting. Positive constipation. No chest pain. Positive shortness of breath with exertion. Positive chronic back pain with pain radiating down both legs. No itching. No headaches, no blurry vision, no dysphagia. All other review of systems otherwise negative. PAST MEDICAL HISTORY: CKD stage IV, followed by Dr. Arnold with a mature fistula, hypothyroidism, spinal stenosis, hiatal hernia, osteoarthritis. PAST SURGICAL HISTORY: Cholecystectomy, as well as fistula placement. FAMILY HISTORY: Significant for hypertension. SOCIAL HISTORY: The patient lives alone with family support. No smoking, no alcohol, no drugs. CURRENT MEDICATIONS: Fentanyl patch, Boost, aspirin 81 mg a day, Lipitor 10 mg a day, calcitriol 0.25 mcg daily, Celexa 30 mg daily, folic acid 400 mcg daily, Imdur 30 mg daily, magnesium 800 mg daily, Caltrate 1 tab daily, Singulair 10 mg daily, iron 324 mg daily, Protonix 40 mg daily, Synthroid 100 mcg daily, heparin 5,000 units subQ q. 12, Lopressor 50 mg p.o. b.i.d., Colace 100 mg p.o. b.i.d., doxycycline 100 mg p.o. b.i.d. PHYSICAL EXAMINATION VITAL SIGNS: Temperature 36.8, pulse in the 60s, respiratory rate is 20, blood pressure was elevated first thing this morning 191/71 but previous readings 116/62, 163/68, satting 91% on room air. GENERAL: Awake, alert, oriented x3. EYES: No scleral icterus. EARS, NOSE, THROAT: Moist mucous membranes. NECK: Supple. PULMONARY: Clear to auscultation. CARDIAC: Regular rate and rhythm. ABDOMEN: Bowel sounds positive, soft, nontender. EXTREMITIES: Mild edema. Tender to palpation. NEUROLOGICALLY: Does have limited mobility of her legs secondary to pain. SKIN: No ulcers noted. LABORATORY DATA: Sodium level is 139, potassium 4.4, chloride is 104, bicarbonate is 31, BUN is 49, creatinine is 2.7, glucose 77. White count 6, H\T\H 9.7 and 29.5, platelet count is 166. INR is 1. UA is bland. Abdominal pelvis CT -- kidneys were atrophic, no hydronephrosis. There was a nonobstructing kidney stone noted on CT. ASSESSMENT AND PLAN: 1. Chronic kidney disease stage IV with a creatinine of 3.05 on 07/06/2016, 3.3 on 05/22/2016, 3.1 in December 2015. So appears baseline creatinine is in the low 3s, followed by Dr. Arnold with a mature access. Creatinine was 3.3 on admission and is now 2.7, so below baseline kidney function, volume status appears appropriate. No indication for emergent dialysis. Would recommend followup with Dr. Arnold as an outpatient during their originally scheduled appointments. 2. Anemia of renal failure. Hemoglobin levels are below 10 and would defer to Dr. Arnold to continue following hemoglobin levels to see if there is any indication for Procrit injections. 3. Renal osteodystrophy. The patient is on calcitriol 0.25 mcg daily and would recommend continuing following vitamin D, PTH, and phos levels as an outpatient and adjusting dose of calcitriol and/or oral vitamin D supplementation depending on outpatient labs. Overall, okay from a renal perspective for discharge once patient's back pain appears appropriately treated and patient feels safe to go home. MTDD
[2016-08-11] MEDS ORDERED: FUROSEMIDE 80 MG TAB PO ONE (13:24)
[2016-08-11] MEDS ORDERED: VALSARTAN 80 MG TAB PO ONE (13:24)
[2016-08-11 15:12] VITALS: BP 150/67; PULSE 55; TEMP 37.3; O2SAT 93
--- NOTE | 2016-08-11 15:13 | Progress Note ---
Medicine Progress Note Date & Time of Visit: Aug 11, 2016 at 14:59. Subjective Pt was seen and examined Sitting in chair with no distress with family at bedside Pt said that her back pain feels much better denies any chest pain, palpitation, dizziness and sob Objective Last 8 Hrs Date Time Temp Pulse Resp B/P Pulse Ox O2 Delivery O2 Flow Rate FiO2 08/11/16 10:16 148/63 08/11/16 08:10 Room Air 08/11/16 07:42 36.8 113 20 191/71 91 Physical Exam: General- No acute distress Head- atraumatic Eyes- PERRL, EOMI ENT- oropharynx clear Neck- supple, no JVD Lungs- clear to auscultation, no wheezing Heart- regular rhythm Abdomen- normal bowel sounds, soft Extremities- + edema and tenderness in LE Neuro- alert, oriented, PERRL, EOMI Skin- warm & dry Laboratory Results: Last 24 Hours Test 08/11/16 05:09 White Blood Count 6.43 K/uL Red Blood Count 3.10 M/uL Hemoglobin 9.7 g/dL Hematocrit 29.5 % Mean Corpuscular Volume 95.2 fL Mean Corpuscular Hemoglobin 31.3 pg Mean Corpuscular Hemoglobin Concent 32.9 g/dl RDW Standard Deviation 44.7 fL RDW Coefficient of Variation 12.9 % Platelet Count 166 K/uL Mean Platelet Volume 9.7 fL Sodium Level 139 mmol/L Potassium Level 4.4 mmol/L Chloride Level 104 mmol/L Carbon Dioxide Level 31 mmol/L Anion Gap 4.0 mmol/L Blood Urea Nitrogen 49 mg/dl Creatinine 2.70 mg/dl Est Creatinine Clear Calc Drug Dose 16.2 ml/min Estimated GFR () 18.0 Estimated GFR (Non- 15.6 BUN/Creatinine Ratio 18.2 Random Glucose 77 mg/dl Calcium Level 9.0 mg/dl Assessment & Plan INTRACTABLE LOW BACK PAIN WITH RADICULOPATHY, ACUTE ON CHRONIC Chronic pain syndrome hx spinal stenosis - status post L4-S1 decompression/fusion in Nov 2011 Hx chronic low back pain with intermittent radiation of pain in lower extremities On Fentanyl 12 and 50 mcg patches, oxycodone q 4 hours prn for pain at home X ray lumbar spine showed L4-S1 posterior decompression and fusion. The hardware appears intact. Continue PT/OT Continue pain controlled Pain is much better will refer for home PT MAHI ON CKD Stage 4 Seems like new baseline creatine is btw 3.1 to 3.3 since back 12/30 Creatine on admission 3.3---> 3.1 -->2.7 today Pt follow with Dr. Arnold ([facility]) Had a fistula placed in her left arm about 2 yrs ago Nephrology consulted, no need for HD at this time. Continue current management and follow up with nephro (dr. Arnold) Resume lasix 80 mg and ARB Monitor bmp MILD CELLULITIS LOWER EXTREMITIES- BL RT> LT Continue Doxycycline 100 mg PO BID to complete 7 days course Venous Doppler of LE negative for DVT HX OF BREAST CARCINOMA CT abd/pelvis- There is a 2.4 cm irregular lesion identified within the posterior right breast. Although not well evaluated by CT this is highly concerning for neoplasm. Follow-up at the breast center is recommended for mammography and ultrasound. HTN- Stable Will resume in ARB in am continue monitor BP HYPOTHYROIDISM On Synthroid GERD Protonix DVT PROPHYLAXIS Moderate risk Heparin sq q 12 hours DISPOSITION PT/OT- lives alone with support from daughter SS consulted CODE STATUS DNR DISPOSITION Will discharge home today Home PT/OT Follow up appt with Dr. Hdz on August 14 at 11:05 am Follow up with your Nephrology Dr. Arnold Consultants: Nephrology Current Inpatient Medications: Current Inpatient Medications Medications (Trade) Dose Ordered Sig/Lauren Route Start Time Stop Time Status Last Admin Dose Admin Albuterol (Ventolin Hfa Inhaler) 2 puffs Q6H PRN INH 08/08/16 13:00 09/07/16 12:59 Aspirin (Ecotrin Tab) 81 mg DAILY PO 08/09/16 08:00 09/08/16 08:59 08/11/16 08:01 81 MG Atorvastatin Calcium (Lipitor Tab) 10 mg DAILY PO 08/09/16 08:00 09/08/16 08:59 08/11/16 08:01 10 MG Calcitriol (Rocaltrol Cap) 0.25 mcg DAILY PO 08/09/16 08:00 09/08/16 08:59 08/11/16 08:03 0.25 MCG Citalopram Hydrobromide (celeXA TAB) 30 mg DAILY PO 08/09/16 08:00 09/08/16 08:59 08/11/16 08:01 30 MG Folic Acid (Folvite Tab) 400 mcg DAILY PO 08/09/16 08:00 09/08/16 08:59 08/11/16 08:00 400 MCG Isosorbide Mononitrate (Imdur Ext Rel Tab) 30 mg QAM PO 08/09/16 08:00 09/08/16 08:59 08/11/16 08:00 30 MG Levothyroxine Sodium (Synthroid Tab) 100 mcg DAILYBB PO 08/09/16 06:30 09/08/16 06:29 08/11/16 05:55 100 MCG Magnesium Oxide (Mag-Ox Tab) 800 mg DAILY PO 08/09/16 08:00 09/08/16 08:59 08/11/16 08:03 800 MG Metoprolol Tartrate (Lopressor Tab) 50 mg BID PO 08/08/16 20:00 09/07/16 20:59 08/11/16 08:04 50 MG Montelukast Sodium (Singulair Tab) 10 mg DAILY PO 08/09/16 08:00 09/08/16 08:59 08/11/16 08:03 10 MG Oxycodone/ Acetaminophen (Percocet 5-325mg Tab) 1 tab Q4H PRN PO 08/08/16 13:00 08/22/16 12:59 08/11/16 08:10 1 TAB Calcium/Vitamin D (Caltrate Plus Tab) 1 tab DAILY PO 08/09/16 08:00 09/08/16 08:59 08/11/16 08:04 1 TAB Ferrous Gluconate (Ferrous Gluconate Tab) 324 mg DAILY PO 08/09/16 08:00 09/08/16 07:59 08/11/16 08:00 324 MG Acetaminophen (Tylenol Tab) 650 mg Q4H PRN PO 08/08/16 13:30 09/07/16 13:29 Magnesium Hydroxide (Milk Of Magnesia Susp) 30 ml Q6H PRN PO 08/08/16 13:30 09/07/16 13:29 Polyethylene (Miralax Powder Packet) 17 gm DAILY PRN PO 08/08/16 13:30 09/07/16 13:29 Ondansetron HCl (Zofran Inj) 4 mg Q6H PRN IV 08/08/16 13:30 09/07/16 13:29 Heparin Sodium (Porcine) (Heparin Sq 5000 Unit/0.5ml) 5,000 unit Q12H SQ 08/08/16 21:00 09/07/16 20:59 08/11/16 08:15 5,000 UNIT Pantoprazole Sodium (Protonix Tab) 40 mg QAM PO 08/09/16 08:00 09/08/16 08:59 08/11/16 08:04 40 MG Docusate Sodium (coLACE CAP) 100 mg BID PO 08/08/16 20:00 09/07/16 20:59 08/11/16 08:01 100 MG Doxycycline Hyclate (Vibramycin Cap) 100 mg BID PO 08/08/16 20:00 08/18/16 20:59 08/11/16 08:04 100 MG Hydromorphone HCl (Dilaudid Inj) 1 mg Q4H PRN IV 08/08/16 14:00 08/22/16 13:59 Miscellaneous Information (Check Fentanyl Patch Placement) 1 ea QS N/A 08/08/16 16:00 09/07/16 15:59 08/11/16 08:11 1 EA Miscellaneous Information (Check Fentanyl Patch Placement) 1 ea QS N/A 08/08/16 16:00 09/07/16 15:59 08/11/16 08:11 1 EA Fentanyl (Duragesic Patch) 50 mcg Q3D@2100 TD 08/09/16 21:00 08/23/16 20:59 08/09/16 20:57 50 MCG Fentanyl (Duragesic Patch) 12 mcg Q3D@2100 TD 08/09/16 21:00 08/23/16 20:59 08/09/16 20:57 12 MCG Miscellaneous (Fentanyl Patch Remove & Waste) 1 ea Q3D@2059 N/A 08/12/16 20:59 09/11/16 20:58 Miscellaneous (Fentanyl Patch Remove & Waste) 1 ea Q3D@2059 N/A 08/12/16 20:59 09/11/16 20:58 Enteral Nutritional Formula (Boost) 1 can DAILY PO 08/10/16 08:00 09/09/16 07:59 08/11/16 08:09 1 CAN Exemestane (Exemestane) 25 mg DAILY PO 08/11/16 08:00 09/10/16 07:59 08/11/16 08:02 25 MG Linaclotide (Linzess) 145 mcg DAILY@0800 PO 08/11/16 08:00 09/10/16 07:59 08/11/16 08:03 145 MCG Furosemide (Lasix Tab) 80 mg DAILY PO 08/12/16 08:00 09/11/16 07:59 Valsartan (Diovan Tab) 40 mg DAILY PO 08/12/16 08:00 09/11/16 07:59
[2016-08-11] MEDS ORDERED: DXY100 PO (15:17)
--- NOTE | 2016-08-11 15:27 | Discharge Instructions ---
Discharge Instructions Date of Service Aug 11, 2016. Admission Reason for Admission: Intractable Pain, Spinal Stenosis Discharge Discharge Diagnosis / Problem: Intractable back Pain, CKD stage 4, HX OF BREAST CARCINOMA Discharge Goals Goal(s): Decrease discomfort, Improve function, Improve disease control Activity Recommendations Activity Limitations: resume your previous activity (as tolerated) . Instructions / Follow-Up Instructions / Follow-Up Follow up appointment with Dr. Hzd (Dr[facility]) on August 14 at 11 :05 am Fall precaution Home PT/OT evaluation (Case management will arrange it) Right Breast Lesion seen on Cat scan (Follow-up Recommended for mammography and ultrasound of the breast) Follow up with your nephrology Complete 7 days course of doxycycline antibiotic Monitor BMP for renal function Avoid nephrotoxic agents Follow up with pain management Current Hospital Diet Patient's current hospital diet: AHA Diet (Heart Healthy), Low Sodium Diet (2gm Na) Discharge Diet Recommended Diet: AHA Diet (Heart Healthy), Diabetes Type 2 Diet, Renal Diet Pending Studies Studies pending at discharge: no Medical Emergencies . Who to Call and When: Medical Emergencies: If at any time you feel your situation is an emergency, please call 911 immediately. . Non-Emergent Contact Non-Emergency issues call your: Primary Care Provider Call Non-Emergent contact if: your pain is not controlled, your pain is worsening, your pain is concerning you . . "Provider Documentation" section prepared by Catalina Parsons. . VTE Core Measure Inpt VTE Proph given/why not?: Unfractionated heparin SQ [place] Drug Monitoring Program Search Results: patient reviewed within database
[2016-08-11] MEDS ORDERED: OXYC-57 PO (15:29)
[2016-08-11 16:27] VITALS: BP 150/67; PULSE 55; TEMP 37.3; O2SAT 93
[2016-08-12] MEDS ORDERED: FUROSEMIDE 80 MG TAB PO SCH (08:00)
[2016-08-12] MEDS ORDERED: VALSARTAN 80 MG TAB PO SCH (08:00)
--- NOTE | 2016-08-12 17:16 | Discharge Summary ---
Discharge Summary Date of Service Aug 12, 2016. Discharge Summary Admission Date: Aug 08, 2016 at 13:30 Discharge Date: Aug 11, 2016 Discharge Disposition: Home Principal Diagnosis: Intractable back Pain Secondary Diagnoses/Problems: CKD stage 4 HX OF BREAST CARCINOMA Chronic Pain syndrome CELLULITIS LOWER EXTREMITIES HTN Hypothyroidism Procedures: BILATERAL LOWER EXTREMITY VENOUS DOPPLER CLINICAL HISTORY: Lower extremity tenderness and swelling. COMPARISON STUDY: No previous studies for comparison. TECHNIQUE: Sonography of the deep venous system of the bilateral lower extremities was performed. Compression and augmentation were evaluated. FINDINGS: This exam was significantly compromised due to suboptimal penetration. There was lower extremity edema. The common femoral, superficial femoral and popliteal veins were compressible. Augmentation was normal. Flow was shown within the deep calf vessels. IMPRESSION: Technically compromised exam but no evidence of deep venous thrombus within the bilateral lower extremities. Electronically signed by: Jon Cobian M.D. 08/09/2016 5:09 PM Dictated Date/Time: 08/09/2016 5:[address] SCAN OF THE ABDOMEN AND PELVIS WITHOUT IV CONTRAST CLINICAL HISTORY: Generalized and left-sided abdominal pain. COMPARISON STUDY: Abdominal radiographs dated 01/13/2015. TECHNIQUE: CT scan of the abdomen and pelvis is performed from the lung bases to the proximal femora. Images are reviewed in the axial, sagittal, and coronal planes. IV contrast was not administered for this examination as per the referring clinician. Note that the examination was performed and significant suboptimal fashion without oral and IV contrast. The examination is also degraded by streak artifact from the patient's arms which could not be [place] elevated above the abdomen. Automated dose control exposure was utilized. CT DOSE: 965.03 mGy.cm FINDINGS: Lung bases: The heart is mildly enlarged and without pericardial effusion. There are coronary artery calcifications. The lung bases are clear. There is a small to moderate hiatal hernia. There is a 2.4 cm irregular lesion identified within the posterior right breast on image #12. Liver: Evaluation of the liver is degraded by streak artifact. The unenhanced liver appears normal in size and contour. The liver demonstrates heterogeneous attenuation. There is mild central intrahepatic biliary ductal dilatation. Gallbladder: Surgically absent noting clips in the gallbladder fossa. Spleen: Normal in size and attenuation. Pancreas: There is marked fatty atrophy of the pancreas with no acute abnormality identified. Adrenal glands: Unremarkable. Kidneys: The unenhanced kidneys are atrophic and without hydronephrosis. There is a 5 mm nonobstructing calculus in the left lower pole. No right renal calculi are seen. A 1.9 cm low-attenuation lesion in the interpolar left kidney seen on image #147 likely represent a cyst but cannot be definitively characterized due to significant streak artifact. A retroaortic left renal vein is incidentally noted. Abdominal vasculature: The abdominal aorta is normal in course and caliber noting advanced atherosclerotic calcification. Bowel: The small bowel and colon are normal in course and caliber. There are scattered colonic diverticula without CT evidence of acute diverticulitis. Moderate constipation is observed. The appendix is not clearly identified. Peritoneum: There is no intraperitoneal free air or abdominal ascites. There is a small fat-containing umbilical hernia as well as diastases of the rectus musculature. Lymphadenopathy: None. Pelvic viscera: The bladder is decompressed and grossly unremarkable. The uterus is normal as visualized. No adnexal lesion is seen. There is evidence of pelvic floor prolapse. Bilateral fat-containing inguinal hernias are identified. Skeletal structures: The skeletal structures are osteopenic. There is moderate to advanced lumbosacral spondylosis with changes from L4-S1 spinal fusion. No lytic or blastic lesions are seen. Advanced arthritic change is seen in the hips. IMPRESSION: 1. Suboptimal examination without oral and IV contrast. 2. There is a 2.4 cm irregular lesion identified within the posterior right breast. Although not well evaluated by CT this is highly concerning for neoplasm. Follow-up at the breast center is recommended for mammography and ultrasound. 3. There are no acute infectious or inflammatory findings in the abdomen or pelvis. 4. Moderate constipation. 5. Cardiomegaly and hiatal hernia. 6. Nonobstructing left renal calculus. 7. Additional findings as above. Electronically signed by: Ray Newell M.D. 08/08/2016 11:28 AM [~ rep ct add3]] LUMBAR SPINE 5 VIEWS HISTORY: Back pain with lower extremity pain with hx of lumb decom/fusion COMPARISON: None. FINDINGS: There is no fracture. No subluxation. Cholecystectomy. Minimal dextroscoliosis of the upper thoracic spine. The sacrum appears intact. L4-S1 posterior decompression and fusion. The hardware appears intact. Mild disc space narrowing at L1-L2, L2-L3, no free L4. There is also mild disc space narrowing at the lower thoracic spine. Severe osteoarthritis within the right hip with [id number] articulation. IMPRESSION: 1. L4-S1 posterior decompression and fusion. The hardware appears intact. 2. Mild degenerative disease within the upper lumbar spine. 3. Severe osteoarthritis within the right hip. Electronically signed by: Miguel Ziegler M.D. 08/08/2016 1:55 PM Dictated Date/Time: 08/08/2016 1:52 PM CHEST ONE VIEW PORTABLE HISTORY: Generalized abdominal pain. COMPARISON: Chest 01/13/2015. FINDINGS: The heart remains mildly enlarged. Mild diffuse interstitial thickening which is likely chronic. Stable mild elevation of the right hemidiaphragm. No pleural effusions. No pneumothorax. No focal lung consolidations to suggest pneumonia. IMPRESSION: No significant change compared to the prior study. No acute process. Electronically signed by: Miguel Ziegler M.D. 08/08/2016 10:58 AM [~ rep ct add3]] LEFT HIP 2 VIEWS CLINICAL HISTORY: Left hip pain. FINDINGS: AP and frog-leg views of left hip are correlated with pelvic CT performed the same day 08/08/2016. The skeletal structures are osteopenic. No fracture is seen. Mild arthritic change is identified in the left hip. Advanced arthritic change is identified in the partially imaged right hip. Lumbosacral spondylosis and fusion hardware is partially imaged. Mild sclerotic change is also seen in the sacroiliac joints. The overlying soft tissues are within normal limits. There is a nonobstructed abdominal bowel gas pattern. IMPRESSION: 1. No acute bony abnormality is identified in the left hip. 2. Osteopenia and degenerative change as above. Electronically signed by: Ray Newell M.D. 08/08/2016 11:31 AM Dictated Date/Time: 08/08/2016 11:29 AM LEFT KNEE 2 VIEWS HISTORY: Left knee pain COMPARISON: Left knee 09/25/2013. FINDINGS: There is a left total knee arthroplasty. No acute fractures identified. Abnormal superior displacement of the patella. This was also seen on the prior study but appears to have progressed. Soft tissue edema within the knee. Old, healed proximal fibular fracture. No radiopaque foreign bodies. IMPRESSION: 1. No acute fractures within the left knee. 2. Old, healed proximal fibular fracture. 3. Left total knee arthroplasty. Superior displacement of the patella consistent with patellar ligament tear. This likely represents a chronic injury as this has slightly progressed compared to the prior study. Electronically signed by: Miguel Ziegler M.D. 08/08/2016 11:31 AM Dictated Date/Time: 08/08/2016 11:26 AM Consultations: Nephrology Medication Reconciliation New Medications: Doxycycline Hyclate (Doxycycline Hyclate) 100 Mg Cap 100 MG PO BID for 4 Days, #8 CAP Changed Medications: Oxycodone/Acetaminophen 5MG/325MG (Percocet 5MG/325MG) Tab 1 TABLET PO Q8H PRN for Pain for 4 Days, #10 (Changed from: Q6H) Continued Medications: Albuterol Hfa (Ventolin Hfa) 200 Puffs/07655 Mcg Aers 2-4 PUFFS INH Q6H, #1 INHALER Ascorbic Acid (Vitamin C) 1,000 Mg Tab 1000 MG PO DAILY Aspirin (Mallory Low Dose) 81 Mg Tab 81 MG PO DAILY Atorvastatin (Lipitor) 10 Mg Tab 10 MG PO DAILY Calcitriol (Calcitriol) 0.25 Mcg Cap 0.25 MCG PO DAILY Calcium Carbonate-Cholecalcife (Caltrate 600+D) 1 Tab Tab 1 TAB PO DAILY Citalopram Hydrobromide (Citalopram Hydrobromide) 20 Mg Tab 30 MG PO DAILY 1 & 1/2 TABLET DOSE Esomeprazole Magnesium (Nexium) 40 Mg Cap 40 MG PO DAILY Exemestane (Aromasin) 25 Mg Tab 25 MG PO DAILY Fentanyl (Duragesic) 50 Mcg Tdsy 50 MCG TD CQ72HR, PATCH Fentanyl (Fentanyl) 12 Mcg Tdsy 12 MCG TD CQ72HR Ferrous Gluconate (Iron) 27 Mg Tab 65 MG PO DAILY Folic Acid (Folvite) 400 Mcg Tab 400 MCG PO DAILY, TAB Furosemide (Lasix) 80 Mg Tab 80 MG PO DAILY Isosorbide Mononitrate Ext Rel (Imdur Ext Rel) 30 Mg Ertab 30 MG PO QAM Levothyroxine Sodium (Synthroid) 100 Mcg Tab 100 MCG PO DAILY Linaclotide (Linzess) 145 Mcg Cap 145 MCG PO QAM Magnesium Oxide (Mag-Ox) 400 Mg Tab 800 MG PO DAILY, TAB Metoprolol Tartrate (Metoprolol Tartrate) 50 Mg Tab 50 MG PO BID Montelukast Sodium (Singulair) 10 Mg Tab 10 MG PO DAILY Valsartan (Diovan) 80 Mg Tab 40 MG PO DAILY, TAB 1/2 TAB DAILY Admission Information HPI (per Admitting provider): This is a 85 year old F with PMH as below who presented to ER with c/o acute on chronic worsening of lower back/left lower leg pain causing difficulty in ambulation. Patient is a known case of spinal stenosis - status post L4-S1 decompression/ fusion in Nov 2011, severe spinal stenosis. Since surgery, she has always had chronic low back pain with intermittent radiation of pain in lower extremities It has been progressively worsening over the period of years, especially last year and last 3 days it has been the worst. She uses a walker and is able to do her ADLs independently, lives alone with help from daughter. But last 3 days, she has had worsening of chronic back pain with radiation- left lower extremity upto ankle. She has not been able to ambulate or do anything. Reports or falls or traumatic injuries. Has some difficult moving left lower extremity but it is chronic and no new localized weakness, numbness/tingling noted. No fever, chills, urinary/bowel incontinence. Does c/o increased redness, swelling in b/l lower extremities (rt > lt) x few days, but this is also somewhat chronic and happens often. Chronic edema + In ED, received IV morphin x 1 dose. On oxycodone/Fentanyl 12+5- mcg patches at home. Pain somewhat controlled, but still there. Labs- creatinine 3.3 above usual, x rays knee/hip-left/.chest/CT abd/pelvis- no acute findings noted. Will admit her for intractable spinal stenosis pain, MAHI on CKD-III, PT/OT. Physical Exam (per Admitting): General Appearance: + mild distress (secondary to pain) Head: normocephalic, atraumatic Eyes: PERRL ENT: hearing grossly normal Neck: supple Respiratory/Chest: chest non-tender, lungs clear, normal breath sounds, no respiratory distress, no accessory muscle use Cardiovascular: regular rate, rhythm, no murmur Abdomen/GI: non tender, soft Back: + pertinent finding (Tenderness in back- generalized all over) Extremities/Musculoskelatal: + pedal edema (bilaterally), + pertinent finding (bilateral lower extremity- cellulitis- mild (warm, tender, swollen, erythematous)) Neurologic/Psych: alert, oriented x 3, + pertinent finding (5/5 all extremities, except limitation left lower extremity due to pain- 4/5 power which is chronic per patient) Skin: + pertinent finding (bilateral- lower extremities - Erythema, tenderness, swelling +) Hospital Course INTRACTABLE LOW BACK PAIN WITH RADICULOPATHY, ACUTE ON CHRONIC Chronic pain syndrome hx spinal stenosis - status post L4-S1 decompression/fusion in Nov 2011 Hx chronic low back pain with intermittent radiation of pain in lower extremities On Fentanyl 12 and 50 mcg patches, oxycodone q 4 hours prn for pain at home X ray lumbar spine showed L4-S1 posterior decompression and fusion. The hardware appears intact. Continue PT/OT Continue pain controlled Pain is much better will refer for home PT MAHI ON CKD Stage 4 Seems like new baseline creatine is btw 3.1 to 3.3 since back 12/30 Creatine on admission 3.3---> 3.1 -->2.7 today Pt follow with Dr. Arnold ([facility]) Had a fistula placed in her left arm about 2 yrs ago Nephrology consulted, no need for HD at this time. Continue current management and follow up with nephro (dr. Arnold) Resume lasix 80 mg and ARB Monitor bmp MILD CELLULITIS LOWER EXTREMITIES- BL RT> LT Continue Doxycycline 100 mg PO BID to complete 7 days course Venous Doppler of LE negative for DVT HX OF BREAST CARCINOMA CT abd/pelvis- There is a 2.4 cm irregular lesion identified within the posterior right breast. Although not well evaluated by CT this is highly concerning for neoplasm. Follow-up at the breast center is recommended for mammography and ultrasound. HTN- Stable Will resume in ARB in am continue monitor BP HYPOTHYROIDISM On Synthroid GERD Protonix DVT PROPHYLAXIS Moderate risk Heparin sq q 12 hours DISPOSITION PT/OT- lives alone with support from daughter SS consulted CODE STATUS DNR DISPOSITION Will discharge home today Home PT/OT Follow up appt with Dr. Hdz on August 14 at 11:05 am Follow up with your Nephrology Dr. Arnold Total time spent on discharge = 35 min This includes examination of the patient, discharge planning, medication reconciliation, and communication with other providers. Discharge Instructions Discharge Instructions Date of Service Aug 11, 2016. Admission Reason for Admission: Intractable Pain, Spinal Stenosis Discharge Discharge Diagnosis / Problem: Intractable back Pain, CKD stage 4, HX OF BREAST CARCINOMA Discharge Goals Goal(s): Decrease discomfort, Improve function, Improve disease control Activity Recommendations Activity Limitations: resume your previous activity (as tolerated) . Instructions / Follow-Up Instructions / Follow-Up Follow up appointment with Dr. Hdz (Dr. Jewell on [facility]) on August 14 at 11 :05 am Fall precaution Home PT/OT evaluation (Case management will arrange it) Right Breast Lesion seen on Cat scan (Follow-up Recommended for mammography and ultrasound of the breast) Follow up with your nephrology Complete 7 days course of doxycycline antibiotic Monitor BMP for renal function Avoid nephrotoxic agents Follow up with pain management Current Hospital Diet Patient's current hospital diet: AHA Diet (Heart Healthy), Low Sodium Diet (2gm Na) Discharge Diet Recommended Diet: AHA Diet (Heart Healthy), Diabetes Type 2 Diet, Renal Diet Pending Studies Studies pending at discharge: no Medical Emergencies . Who to Call and When: Medical Emergencies: If at any time you feel your situation is an emergency, please call 911 immediately. . Non-Emergent Contact Non-Emergency issues call your: Primary Care Provider Call Non-Emergent contact if: your pain is not controlled, your pain is worsening, your pain is concerning you . . "Provider Documentation" section prepared by Catalina Parsons. . VTE Core Measure Inpt VTE Proph given/why not?: Unfractionated heparin SQ [place] Drug Monitoring Program Search Results: patient reviewed within database Additional Copies To Ander Hdz M.D. Lavery, Doriann M.D.
[2016-08-12] MEDS ORDERED: FENTANYL PATCH REMOVE & WASTE SCH ×2 (20:59)
== END 2016-08-11 17:30 | disposition home health service (06) | DRG 92 ==
LOC: ENRESERVDT → ENRESERVTM → C.EDB 09:45 → C.4E 13:30
PROVIDERS: ADMIT Internal Medicine; ATTEND Internal Medicine
DX: G89.4 Chronic pain syndrome (principal); N17.9 Acute kidney failure, unspecified; N18.4 Chronic kidney disease, stage 4 (severe); L03.115 Cellulitis of right lower limb; L03.116 Cellulitis of left lower limb; M48.06 Spinal stenosis, lumbar region; K44.9 Diaphragmatic hernia without obstruction or gangrene; N25.0 Renal osteodystrophy; M54.5 Low back pain; K21.9 Gastro-esophageal reflux disease without esophagitis; M17.12 Unilateral primary osteoarthritis, left knee; D63.1 Anemia in chronic kidney disease; M25.552 Pain in left hip; M54.10 Radiculopathy, site unspecified; M16.12 Unilateral primary osteoarthritis, left hip; E03.9 Hypothyroidism, unspecified; I12.9 Hypertensive chronic kidney disease with stage 1 through stage 4 chronic kidney disease, or unspecified chronic kidney disease; Z66 Do not resuscitate; Z85.3 Personal history of malignant neoplasm of breast; Z98.1 Arthrodesis status; Z95.828 Presence of other vascular implants and grafts; Z79.891 Long term (current) use of opiate analgesic; Z79.82 Long term (current) use of aspirin; Z79.899 Other long term (current) drug therapy; Z79.01 Long term (current) use of anticoagulants; Z79.2 Long term (current) use of antibiotics